=== PATIENT | female | born 1970 | race Caucasian/White ===

== ENCOUNTER 2019-09-15 10:01 | Outpatient (CLI) | payer BC, SELFPAY ==
[2019-09-15 10:17] LABS: Hemoglobin 15.4 g/dL (12.0-15.0); Mean Corpuscular Hemoglobin 31.4 pg (26-34); Mean Corpuscular Volume 89.8 fl (80-100); Mean Platelet Volume 9.6 fl (7.4-10.4); Platelet Count Result 287 k/mm3 (150-375); White Blood Count 8.6 K/mm3 (4.5-10.0)
[2019-09-15 10:29] LABS: Alanine Aminotransferase 24 U/L (4-35); Aspartate Amino Transferase 31 U/L (14-36); Blood Urea Nitrogen 17 mg/dL (7-17); Calcium 9.5 mg/dL (8.4-10.2); Carbon Dioxide 29 mmol/L (22-30); Chloride 95 mmol/L (98-107); Cholesterol 267 mg/dL (0-200); Estimated Glomerular Filt Rate > 60; Glucose 100 mg/dL (65-105); HDL Direct 49 mg/dL; Sodium 134 mmol/L (137-145); Triglycerides 192 mg/dL (<150)
[2019-09-15 10:40] LABS: LDL Cholesterol Direct 196 mg/dL
[2019-09-15 11:11] LABS: Free T4 Free Thyroxine 1.09 ng/mL (0.78-2.19)
== END 2019-09-15 10:02 | disposition home or self-care (01) ==
PROVIDERS: PCP Internal Medicine; Visit Provider Internal Medicine
DX: Z00.00 Encounter for general adult medical examination without abnormal findings (principal)
CPT/HCPCS: 36415; 80048; 80061; 84439; 84443; 84450; 84460; 85027

== ENCOUNTER 2019-11-03 16:11 | Outpatient (CLI) | payer BC, SELFPAY ==
[2019-11-03 17:14] LABS: Alanine Aminotransferase 21 U/L (4-35); Aspartate Amino Transferase 24 U/L (14-36); Cholesterol 164 mg/dL (0-200); Creatine Kinase 115 U/L (30-135); HDL Direct 56 mg/dL; Triglycerides 113 mg/dL (<150)
[2019-11-03 17:25] LABS: LDL Cholesterol Direct 93 mg/dL
== END 2019-11-03 16:12 | disposition home or self-care (01) ==
PROVIDERS: PCP Internal Medicine; Visit Provider Internal Medicine
DX: E78.01 Familial hypercholesterolemia (principal); I10 Essential (primary) hypertension
CPT/HCPCS: 36415; 80061; 82550; 84450; 84460

== ENCOUNTER 2020-05-07 12:16 | Emergency (ER) | payer BC, SELFPAY ==
--- NOTE | ~2020-05-07 | CT_ITS ---
EXAMINATION: CT abdomen pelvis w con EXAM DATE: 05/07/2020 14:06 INDICATION: LLQ abd pain today with nausea . TECHNIQUE: Spiral CT of the abdomen and pelvis was performed following intravenous injection of 100 m L Omnipaque 350. Axial, coronal and sagittal images were reviewed. The dose-length product (DLP) fo r this examination was 837.00 mGy-cm. The exposure was tailored according to patient size (auto mA e xposure control), and iterative reconstruction (ASIR) was used as additional dose reduction technique . There is no prior study for comparison. FINDINGS: The liver, spleen, adrenal glands and pancreas are unremarkable. Gallbladder is unremarkab le. No biliary obstruction. Portal and splenic veins are patent. Kidneys enhance symmetrically. T here is no hydronephrosis. The uterus is unremarkable. The bladder is unremarkable. There is no retroperitoneal or pelvic lymphadenopathy. The appendix is normal. The stomach and small bowel are unremarkable. There is expected amount of c olonic stool. No free intraperitoneal gas. The heart is normal in size. There are no pericardial or pleural effusions. The lung bases are unremarkable. There are no osteoblastic or osteolytic les ions identified. IMPRESSION: 1. No acute intra-abdominal findings. Reviewed, dictated and finalized at location B. SELING DEPARTMENT CHAIR
--- NOTE | 2020-05-07 12:22 | ED.ABDPAIN ---
HPI - Abdominal Pain General Chief Complaint: Abdominal Pain Stated Complaint: ABD PAIN Time Seen by Provider: 05/07/20 12:20 Source: patient and RN notes reviewed Mode of arrival: ambulatory Limitations: no limitations History of Present Illness MD elicited complaint: abdominal pain Pertinent past history: none Onset (ago): hour(s) (1) Pain Consistency: constant Location: [facility] Severity: severe Quality: cramping and stabbing Radiation: none Migration to: no migration Exacerbating factors: nothing Relieving factors: nothing Associated symptoms: nausea Related Data Allergies Allergy/AdvReac Type Severity Reaction Status Date / Time No Known Allergies Allergy Verified 04/18/20 16:56 Review of Systems Review of Systems: All systems reviewed & are unremarkable except as noted in HPI and below Constitutional: Constitutional: Denies chills and Denies fever(s) ENT: Reports system reviewed and no additional complaints, except as documented Cardiovascular: Cardiovascular: Reports no additional cardiovascular complaints Respiratory: Respiratory: Reports no additional respiratory complaints Gastrointestinal: Gastrointestinal: Reports as per HPI, Denies constipation, Denies diarrhea, Denies nausea and Denies vomiting Genitourinary: Genitourinary: Denies nocturia and Denies dysuria Musculoskeletal: Musculoskeletal: Reports no additional musculoskeletal complaints Neurologic: Reports system reviewed and no additional complaints, except as documented Psychiatric: Psychiatric: Reports no additional psychiatric complaints FOR[facility]LY [facility] Past Medical History Medical History (Updated 05/07/20 @ 15:24 by Denver Christine MD) Essential (primary) hypertension Familial hypercholesterolemia Surgical History Surgical History (Updated 05/07/20 @ 12:38 by Denver Christine MD) Previous section Social History Social History (Updated 05/07/20 @ 12:39 by Denver Christine MD) Smoking status: Never smoker Alcohol intake: current Alcohol use details: occasional Substance use: never Exam Const: General: healthy appearing and no acute distress Nutritional Appearance: well nourished Orientation/consciousness: patient oriented x3 Other: female nurse in room during examination HENMT: Head: normal to inspection Ears: external ears normal Eyes: Conjunctivae: conjunctivae normal Pupils: Equal, round and reactive pupils present EOM: EOMs intact bilaterally Neck: Neck: normal visual inspection Resp: Effort & Inspection: normal respiratory effort Auscultation: clear to auscultation bilaterally Cardio: Rate: regular rate Rhythm: regular rhythm GI: GI Palp: Yes Soft to palpation, Yes Tenderness to palpation present (GI) (LLQ), Yes Guarding due to palpation present (GI) (LLQ) and No Rebound tenderness present Auscultation: normal bowel sounds Back/Spine/Pelvis: Cervical Spine: cervical ROM normal Thoracic/Lumbar Spine: thoraco-lumbar ROM normal Skin: General skin exam: normal color Rashes: no rashes Neuro: General: patient oriented x3, moves all extremities and no focal motor deficits Speech: normal speech Gait exam (Neuro): Normal gait present Extrem: General: normal to inspection and no clubbing, cyanosis or edema Psych: Appearance: grossly normal and well kempt Mental Status: mental status grossly normal Affect: normal affect Attitude: cooperative Thought content: Yes Normal thought content present Course Vital Signs Vital signs: Vital Signs Temperature 37.4 C 05/07/20 12:38 Pulse Rate 75 05/07/20 12:38 Respiratory Rate 20 05/07/20 12:38 Blood Pressure 127/99 H 05/07/20 12:38 Pulse Oximetry 96 05/07/20 12:38 Temperature 36.6 C 05/07/20 15:36 Pulse Rate 66 05/07/20 15:36 Respiratory Rate 18 05/07/20 15:36 Blood Pressure 100/80 05/07/20 15:36 Pulse Oximetry 99 05/07/20 15:36 MDM - Abdominal Pain MDM Narrative Medical decision making narrative: I reviewe
[2020-05-07 12:38] VITALS: BP 127/99; PULSE 75; RESP 20; TEMP 37.4; O2SAT 96
[2020-05-07 12:54] LABS: Basophils Absolute Auto 0.05 K/mm3 (0.00-0.10); Basophils Percent Auto 0.6 % (0.0-1.0); Eosinophils Absolute Auto 0.07 K/mm3 (0.02-0.50); Eosinophils Percent Auto 0.9 % (1.0-6.0); Hematocrit 40.3 % (35.0-49.0); Hemoglobin 13.7 g/dL (12.0-15.0); Immature Granulocyte Absolute 0.02 K/mm3 (0.00-0.00); Immature Granulocyte Percent A 0.3 % (0.0-0.0); Lymphocytes Absolute Auto 2.39 K/mm3 (1.10-4.50); Lymphocytes Percent Auto 30.3 % (18.0-42.0); Mean Corpuscular Hemoglobin 31.1 pg (27.0-31.0); Mean Corpuscular Volume 91.4 fL (78.0-102.0); Mean Platelet Volume 9.5 fl (9.2-11.8); Monocytes Percent Auto 7.6 % (2.0-11.0); Neutrophils Absolute Auto 4.8 K/mm3 (1.7-7.2); Neutrophils Percent Auto 60.3 % (50.0-70.0); Platelet Count Result 262 K/mm3 (150-420); Red Blood Count 4.41 M/mm3 (4.20-5.40); Red Cell Distribution Width 12.3 % (11.6-14.4); White Blood Count 7.9 K/mm3 (4.8-10.8)
[2020-05-07 13:08] LABS: Alanine Aminotransferase 44 U/L (14-59); Albumin Level 4.1 g/dL (3.4-5.0); Alkaline Phosphatase 54 U/L (46-116); Anion Gap 10 mmol/L (8-16); Aspartate Amino Transferase 16 U/L (15-37); Bilirubin,Total 0.4 mg/dL (0.00-1.00); Blood Urea Nitrogen 18 mg/dL (7-18); Calcium 9.7 mg/dL (8.5-10.1); Carbon Dioxide 28 mmol/L (21-32); Chloride 103 mmol/L (98-108); Estimated Glomerular Filt Rate > 60; Glucose 92 mg/dL (70-99); Lipase 76 U/L (73-393); Osmolality Calculated 293 mOsm/kg (285-295); Potassium 3.9 mmol/L (3.5-5.1); Sodium 141 mmol/L (136-145); Total Protein 7.8 g/dL (6.4-8.2)
[2020-05-07 13:13] LABS: Lactic Acid Reflex 1.4 mmol/L (0.4-2.0)
[2020-05-07 13:16] LABS: CRP < 0.5 mg/dL (0.0-0.9)
[2020-05-07 13:22] LABS: Add Urine Microscopic? YES; Appearance Urine Clear (Clear); Bilirubin Urine Negative (Negative); Blood Urine Negative (Negative); Color Urine Yellow (Yellow); Glucose Urine UA Negative (Negative); Ketones Urine Negative (Negative); Leukocyte Esterase Ur Trace LEU/UL (Negative); Nitrate Urine Negative (Negative); Protein Urine Negative (Negative); Specific Grav Ur >= 1.030 (1.010-1.020); Urobilinogen Urine 0.2 mg/dL (0.2-1.0)
[2020-05-07 13:26] LABS: RBC Urine 0-2 /hpf (0-2); Squamous Epithelial Cell Urine Moderate /hpf (Few); WBC Urine 0-3 /hpf (0-3)
[2020-05-07 13:27] LABS: Bacteria Urine 3+ /hpf
[2020-05-07] MEDS: HYDROmorphone HCL INJ (*CRX) 2 MG/ML VIAL 0.5 MG IV PUSH (13:41)
[2020-05-07] MEDS: ONDANSETRON INJ 4 MG/2 ML VIAL (14:38)
[2020-05-07] MEDS: MAG HYDROX/ALUMINUM HYD/SIMETH 30 ML, PHENobarb/HYOSCY/ATROPINE/SCOP 32.4 MG, LIDOCAINE... PO (14:46)
[2020-05-07 15:06] VITALS: BP 97/54; PULSE 70; RESP 20; O2SAT 100
[2020-05-07 15:36] VITALS: BP 100/80; PULSE 66; RESP 18; TEMP 36.6; O2SAT 99
== END 2020-05-07 15:38 | disposition home or self-care (01) ==
PROVIDERS: Emergency Provider Emergency Medicine; PCP Internal Medicine
DX: R10.12 Left upper quadrant pain (principal); K25.3 Acute gastric ulcer without hemorrhage or perforation; I10 Essential (primary) hypertension; E78.01 Familial hypercholesterolemia
CPT/HCPCS: 36415; 74177; 80053; 81001; 83605; 83690; 85025; 86140; 96374; 96375; 99283; 99284; A9270; J1170; J2405; Q9967

== ENCOUNTER 2021-06-12 15:43 | Outpatient (CLI) | payer BC, SELFPAY ==
[2021-06-12 16:15] LABS: Hematocrit 43.3 % (35.0-49.0); Hemoglobin 14.8 g/dL (12.0-15.0); Mean Corpuscular HGB Conc 34.2 g/dL (32.0-36.0); Mean Corpuscular Hemoglobin 31.6 pg (27.0-31.0); Mean Corpuscular Volume 92.3 fL (78.0-102.0); Mean Platelet Volume 9.7 fl (9.2-11.8); Platelet Count Result 260 K/mm3 (150-420); Red Blood Count 4.69 M/mm3 (4.20-5.40); White Blood Count 7.9 K/mm3 (4.8-10.8)
[2021-06-12 17:03] LABS: Alanine Aminotransferase 28 U/L (14-59); Albumin Level 4.2 g/dL (3.4-5.0); Alkaline Phosphatase 69 U/L (46-116); Anion Gap 11 mmol/L (8-16); Aspartate Amino Transferase 20 U/L (15-37); Bilirubin,Total 0.4 mg/dL (0.00-1.00); Blood Urea Nitrogen 17 mg/dL (7-18); Calcium 9.2 mg/dL (8.5-10.1); Carbon Dioxide 24 mmol/L (21-32); Chloride 101 mmol/L (98-108); Cholesterol 256 mg/dL (0-200); Estimated Glomerular Filt Rate > 60; Glucose 82 mg/dL (70-99); HDL Direct 48 mg/dL (40-60); LDL Cholesterol Calculated 179 mg/dL (<130); Osmolality Calculated 282 mOsm/kg (285-295); Potassium 3.6 mmol/L (3.5-5.1); Sodium 136 mmol/L (136-145); Total Protein 7.4 g/dL (6.4-8.2); Triglycerides 145 mg/dL (0-150)
== END 2021-06-12 15:44 | disposition home or self-care (01) ==
LOC: CHSLAB 15:45
PROVIDERS: PCP Family Medicine; Visit Provider Family Medicine
DX: I10 Essential (primary) hypertension (principal)
CPT/HCPCS: 36415; 80053; 80061; 85027

== ENCOUNTER 2021-06-25 06:55 | Outpatient (CLI) | payer BC, SELFPAY ==
--- NOTE | ~2021-06-25 | MM_ITS ---
EXAMINATION: MM screening mikel BI w dejan HISTORY: Screening mammogram TECHNIQUE: Craniocaudal and mediolateral oblique 3-D tomosynthesis images were obtained and synthetic 2-D images were generated. CAD analysis was submitted and interpreted. COMPARISON: No prior mammogram is available for comparison at this institution. BREAST PARENCHYMAL COMPOSITION: There are scattered areas of fibroglandular density. FINDINGS: There is no evidence of suspicious mass, calcification, or architectural distortion to sugg est malignancy in either breast. There has been no suspicious interval change. IMPRESSION: 1. No mammographic evidence of malignancy. 2. Recommend routine screening mammography in one year. BI-RADS Category 1: Negative Reviewed, dictated and finalized at location A.
== END 2021-06-25 06:56 | disposition home or self-care (01) ==
LOC: CHSIMG 06:56
PROVIDERS: PCP Family Medicine; Visit Provider Family Medicine
DX: Z12.31 Encounter for screening mammogram for malignant neoplasm of breast (principal)
CPT/HCPCS: 77063; 77067

== ENCOUNTER 2021-10-08 21:11 | Emergency (ER) | payer BC, SELFPAY ==
--- NOTE | ~2021-10-08 | CT_ITS ---
EXAMINATION: CT abdomen pelvis w con DATE: 10/08/2021 22:51 INDICATION: RUQ pain TECHNIQUE: Computed tomography (CT) of the abdomen and pelvis was performed with 100 mL Omnipaque-300 intravenous contrast. Automated exposure control and iterative reconstruction technique were employe d. The dose-length product was 929.54 mGy-cm. COMPARISON: 05/07/2020. FINDINGS: Lower thorax: Stable peripheral nodules. Liver: Normal. Biliary/Gallbladder: Gallbladder is normal. No bile duct dilation. Pancreas: No mass or duct dilation. Spleen: Normal. Adrenals:No mass. Kidneys: No mass, stone, or hydronephrosis. GI tract: No small or large bowel dilation. Normal appendix. Mesentery/Peritoneum: No ascites, mass, or free air. Retroperitoneum: No mass. Pelvis: Fibroid uterus. Hypoenhancement of the cervix. Simple appearing subcentimeter left ovarian cy st. Soft Tissues: Soft tissues and body wall unremarkable. Bones: No acute osseous finding. IMPRESSION: No CT finding that would explain right upper quadrant pain. Hypoenhancing cervix, a nonspecific findi ng. Gynecology referral may be advisable to exclude cervical pathology. Reviewed, dictated and finalized at location K. IMPRESSION: No CT finding that would explain right upper quadrant pain. Hypoenhancing cervi x, a nonspecific finding. Gynecology referral may be advisable to exclude cervi miguel angel pathology.
[2021-10-08 21:14] VITALS: BP 163/108; PULSE 102; RESP 26; TEMP 36.8; O2SAT 95
[2021-10-08 21:44] LABS: Basophils Absolute Auto 0.1 K/mm3 (0.0-0.1); Basophils Percent Auto 1.1 % (0.2-1.2); Eosinophils Absolute Auto 0.2 K/mm3 (0-0.3); Hematocrit 44.9 % (37.0-47.0); Hemoglobin 14.8 g/dL (12.0-15.0); Immature Granulocyte Absolute 0.02 K/mm3 (0.00-0.031); Immature Granulocyte Percent A 0.2 % (0-0.5); Lymphocytes Absolute Auto 3.24 K/mm3 (0.9-3.2); Lymphocytes Percent Auto 37.9 % (18.3-44.2); Mean Corpuscular Hemoglobin 30.9 pg (26-34); Mean Corpuscular Volume 93.7 fl (80-100); Mean Platelet Volume 9.4 fl (7.4-10.4); Monocytes Absolute Auto 0.6 K/mm3 (0.1-0.6); Monocytes Percent Auto 6.9 % (2.6-8.5); Neutrophils Absolute Auto 4.5 K/mm3 (1.3-6.7); Neutrophils Percent Auto 51.9 % (45.5-73.1); Platelet Count Result 337 k/mm3 (150-375); Red Blood Count 4.79 M/mm3 (4.2-5.4); Red Cell Distribution Width 12.4 % (11.5-14.5); White Blood Count 8.6 K/mm3 (4.5-10.0)
[2021-10-08 21:54] LABS: Alanine Aminotransferase 21 U/L (6-35); Albumin Level 4.9 g/dL (3.5-5.1); Alkaline Phosphatase 68 U/L (38-126); Anion Gap 12 mmol/L (8-16); Aspartate Amino Transferase 23 U/L (14-36); Bilirubin,Total 0.3 mg/dL (0.2-1.3); Blood Urea Nitrogen 14 mg/dL (7-17); Calcium 9.2 mg/dL (8.4-10.2); Carbon Dioxide 24 mmol/L (22-30); Chloride 104 mmol/L (98-107); Estimated CRCL calculation 90 ml/min; Estimated Glomerular Filt Rate > 60; Glucose 115 mg/dL (65-110); Lipase 89 U/L (23-300); Potassium 3.8 mmol/L (3.4-5.0); Sodium 140 mmol/L (137-145)
--- NOTE | 2021-10-08 22:14 | ED.ABDPAIN ---
HPI - Abdominal Pain General Chief Complaint: Abdominal Pain Stated Complaint: abd pain Time Seen by Provider: 10/08/21 21:28 Source: patient Mode of arrival: ambulatory Limitations: no limitations History of Present Illness HPI narrative: This is a 50 year old female that presents to the ER for abdominal pain ongoing since this morning. The pain is in the right upper quadrant and sharp in nature. Reports worsening after eating some fried foods tonight. Denies fever, vomiting, or diarrhea. Related Data Allergies Allergy/AdvReac Type Severity Reaction Status Date / Time No Known Allergies Allergy Verified 10/08/21 21:33 Review of Systems Review of Systems: CONSTITUTIONAL: Denies fever GASTROINTESTINAL: Reports abdominal pain, nausea. Denies vomiting, or diarrhea. GENITOURINARY: Denies dysuria All systems reviewed & are unremarkable except as noted in HPI and below PMFSH Past Medical History Medical History Essential (primary) hypertension Familial hypercholesterolemia Surgical History Surgical History delivery delivered Previous section Family History Family History Mother Hypertension Mother Hypertension Other Cancer of pancreas Diabetes mellitus Social History Social History Smoking packs per day: 0 Smoking cigarettes per day: 0.0 Smoking status: Never smoker Alcohol intake: current Drinks per week: 4 Alcohol use details: occasional Substance use: never 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 HEAD: Normocephalic, atraumatic. EYES: EOMI. CHEST: Clear to auscultation. No respiratory distress. No wheezes rales or rhonchi HEART: Regular rate and rhythm. No murmur heard. Normal peripheral pulses. ABDOMEN: Soft, nondistended, normal active bowel sounds. Tender to palpation in the epigastrium and right upper quadrant, without guarding EXTREMITIES: Normal range of motion. No edema. SKIN: Warm, dry, no rash. NEURO: No focal deficits. Alert and oriented x3. PSYCH: Normal mood and affect Course Vital Signs Vital signs: Vital Signs Temperature 98.3 F 10/08/21 21:14 Pulse Rate 102 H 10/08/21 21:14 Respiratory Rate 26 H 10/08/21 21:14 Blood Pressure 163/108 H 10/08/21 21:14 Pulse Oximetry 95 10/08/21 21:14 Oxygen Delivery Room Air 10/08/21 21:14 Temperature 98.3 F 10/08/21 21:14 Pulse Rate 73 10/09/21 00:15 Respiratory Rate 18 10/09/21 00:15 Blood Pressure 160/88 H 10/09/21 00:15 Pulse Oximetry 97 10/09/21 00:15 Oxygen Delivery Room Air 10/08/21 21:14 MDM - Abdominal Pain MDM Narrative Medical decision making narrative: Patient presents to the emergency department for right upper quadrant abdominal pain. Ongoing today. Worsening after eating a fatty meal. She is afebrile and nontoxic-appearing. Her vitals are stable. CBC and metabolic panel without concerning findings. Lipase is normal. UA with 7-9 white blood cells. Patient is not having any urinary symptoms. This will be sent for culture. CT scan of the abdomen and pelvis is without acute intra-abdominal abnormalities. Does show hypoenhancing cervix, nonspecific finding. Gynecology referral recommended. EKG without concerning findings. Patient and family updated on case findings. Hydrated and given antiemetic and pain medication with relief. Will be scheduled for right upper quadrant ultrasound in the morning. Was instructed to have close follow-up with her primary doctor. Also instructed to have follow-up with her chief petroleum engineer. She was given warnings to return to the ER Lab Data Attestation: Megan morocho
[2021-10-08] MEDS: MORPHINE SULFATE (*CRX) 4 MG/ML INJ IV PUSH (22:16)
[2021-10-08] MEDS: SODIUM CHLORIDE 0.9% IV 1,000 ML 999 ML IV CONT (22:17)
[2021-10-08] MEDS: ONDANSETRON INJ 4 MG/2 ML VIAL IV PUSH (22:17)
[2021-10-08 22:23] VITALS: BP 142/98; PULSE 79; RESP 18; O2SAT 97
[2021-10-08 22:36] LABS: Appearance Urine Clear (Clear); Bilirubin Urine Negative (Negative); Blood Urine Negative (Negative); Color Urine Yellow (Yellow); Glucose Urine UA Negative (Negative); Ketones Urine Negative (Negative); Leukocyte Esterase Ur 2+ LEU/UL (Negative); Nitrate Urine Negative (Negative); Protein Urine Negative (Negative); Specific Grav Ur <= 1.005 (1.001-1.035); Urobilinogen Urine 0.2 mg/dL (<2.0); pH Urine 5.5 (5.0-9.0)
[2021-10-08 22:54] LABS: Bacteria Urine Trace /hpf; Mucus Urine Rare /lpf; Squamous Epithelial Cell Urine Few /hpf (Few)
[2021-10-08 22:57] LABS: Add Urine Microscopic? YES
--- NOTE | 2021-10-08 23:20 | ECG_ITS ---
Measurements Intervals [place] Rate: 72 P: 47 MS: 171 QRS: 0 QRSD: 108 T: 2 QT: 406 QTc: 445 Interpretive Statements SINUS RHYTHM MINIMAL Q WAVES- HIGH LATERAL LEADS BORDERLINE T WAVE ABNORMALITY- INFERIOR LEADS BASELINE ARTIFACT- I, II, III, AVR, AVL, AVF BORDERLINE ECG Electronically Signed On 10-09-2021 6:45:59 CDT by Hussein Mcdaniel D.O.
[2021-10-08] MEDS: PANTOPRAZOLE SODIUM IV 40 MG VIAL IV PUSH (23:24)
[2021-10-09 00:15] VITALS: BP 160/88; PULSE 73; RESP 18; O2SAT 97
== END 2021-10-09 00:19 | disposition home or self-care (01) ==
PROVIDERS: Physician Assistant; Emergency Provider General Practice; PCP Family Medicine
DX: R10.11 Right upper quadrant pain (principal); N88.9 Noninflammatory disorder of cervix uteri, unspecified; I10 Essential (primary) hypertension; E78.01 Familial hypercholesterolemia
CPT/HCPCS: 36415; 74177; 80053; 81001; 81025; 83690; 85025; 87086; 93005; 96361; 96365; 96375; 99284; C9113; J0131; J2270; J2405; J7030; Q9967

== ENCOUNTER 2021-10-09 08:23 | Outpatient (CLI) | payer BC, SELFPAY ==
--- NOTE | ~2021-10-09 | US_ITS ---
EXAMINATION: US right upper quadrant DATE: 10/09/2021 09:08 INDICATION: Abdominal pain TECHNIQUE: Multiple grayscale and Doppler ultrasound images of the abdomen were obtained. COMPARISON: CT from yesterday FINDINGS: The head, body, and tail of the pancreas are normal. The liver is normal with normal echoge nicity and echotexture. No surface nodularity. Normal hepatopetal flow in the main portal vein. The g allbladder is normal with no abnormal wall thickening, pericholecystic fluid or stones. The normal co mmon bile duct measures 2 mm. There was no sonographic Chaves sign. IMPRESSION: 1. Normal sonographic study of the gallbladder. Reviewed, dictated and finalized at location B.
== END 2021-10-09 08:24 | disposition home or self-care (01) ==
LOC: ANHIMG 08:24
PROVIDERS: PCP Family Medicine; Visit Provider Physician Assistant
DX: R10.11 Right upper quadrant pain (principal)
CPT/HCPCS: 76705

== ENCOUNTER 2021-10-15 14:58 | Outpatient (CLI) | payer BC, SELFPAY ==
--- NOTE | ~2021-10-15 | XR_ITS ---
XR chest 2V DATE: 10/15/2021 15:36 INDICATION: Right anterior lower chest pain since Covid infection in mid September TECHNIQUE: PA and lateral views COMPARISON: None FINDINGS: Mild elevation right leaf of the diaphragm. Minimal atelectasis at the lung bases. The lung s otherwise are clear of infiltrate or consolidation. No pleural effusion or pulmonary vascular conge stion or pneumothorax. Normal heart size. Minimal aortic tortuosity. No hilar or mediastinal enlargement. Osteopenia. IMPRESSION: Mild elevation of diaphragm and minimal atelectasis at the lung bases Reviewed, dictated and finalized at location B. IMPRESSION: Mild elevation of diaphragm and minimal atelectasis at the lung bas es
== END 2021-10-15 14:59 | disposition home or self-care (01) ==
LOC: CHSIMG 15:01
PROVIDERS: PCP Family Medicine; Visit Provider Family Medicine
DX: R07.9 Chest pain, unspecified (principal)
CPT/HCPCS: 71046

== ENCOUNTER 2022-04-08 15:28 | Outpatient (RCR) | payer BC, SELFPAY ==
--- NOTE | 2022-04-08 16:48 | PTOPEVAL1 ---
Assessment and note entered by Pratik Hannon Evaluation Information Assessment Status Evaluation Diagnosis left hip pain Onset 04/02/22 Subjective Information Pt. reports she developed left hip pain about 10 years ago. She reports that pain is located on the side of the left hip and into the groin. She reports that lifting the left leg increases her pain. She reports that she also gets pain with getting into and out of her vehicle. She reports that pain will wake her at night on occasion. She reports that walking and standing do not increase her pain. She reports that her goal for therapy is to decrease her left hip pain. Reported Pain Level Pain Score 7: Self Report Assessment PT Clinical Summary Pt. is a 51 year old female who enters the clinic with left hip pain. She presents with indications of interarticular hip pathology. She presents with impaired gait, impaired strength, impaired ROM and pain on this date. Conitnued treatment is indicated in order to improve these areas to allow for improve IADL performance. Plan of Care Interventions Electrical Stimulation,Gait Training,Hot Pack/Cold Pack,Manual Therapy,Neuro Re-education, Therapeutic Activities,Therapeutic Exercise,Self- Care/Home Management PT Services Indicated Yes Treatment Frequency and 2x/week x 8 visits Duration These treatments will address the objective and functional deficits as defined above. The patient will be advanced safely and appropriately in order for the patient to progress towards his/her prior level of function. Additional exercises will be introduced and as well as a comprehensive home exercise program upon discharge, if needed, ?to ensure carryover of functional gains achieved in the clinic. This treatment plan has been reviewed and agreement upon by the patient.
== END 2022-04-15 15:42 | disposition home or self-care (01) ==
LOC: CHSPT 15:28
PROVIDERS: PCP Family Medicine; Visit Provider Family Medicine
DX: M25.552 Pain in left hip (principal)
CPT/HCPCS: 97014; 97110; 97161; G0283

== ENCOUNTER 2022-04-08 16:42 | Outpatient (CLI) | payer BC, SELFPAY ==
--- NOTE | ~2022-04-08 | XR_ITS ---
EXAM: XR hip LT min 3V w AP pelvis DATE: 04/08/2022 17:07 HISTORY: CHRONIC LATERAL L HIP PAIN, [id number] . COMPARISON: None available. FINDINGS: Normal mineralization. No fracture or dislocation. No lytic or blastic lesion. Mild bilate ral hip joint space narrowing. Moderate osteitis pubis. No erosion or periosteal change. Soft tissues within normal limits. IMPRESSION: Mild bilateral hip osteoarthritis. Osteitis pubis. Reviewed, dictated and finalized at location K. CERTIFIED TECHNICIAN
== END 2022-04-08 16:43 | disposition home or self-care (01) ==
LOC: CHSIMG 16:44
PROVIDERS: PCP Family Medicine; Visit Provider Family Medicine
DX: M25.552 Pain in left hip (principal); M16.0 Bilateral primary osteoarthritis of hip; M86.8X8 Other osteomyelitis, other site
CPT/HCPCS: 73502

== ENCOUNTER 2022-04-12 08:21 | Outpatient (CLI) | payer BC, SELFPAY ==
--- NOTE | ~2022-04-12 | MR_ITS ---
EXAMINATION: MR hip LT wo con DATE: 04/12/2022 09:33 INDICATION: Left hip pain. TECHNIQUE: Magnetic resonance imaging (MRI) of the left hip was performed without intravenous contras t. COMPARISON: Pelvis and left hip radiographs 04/08/2022 FINDINGS: Bones/cartilage: Bone alignment is normal. No fracture. The hip joints demonstrate tiny osteophytes. Small field-of-vi ew images of left hip demonstrate normal cartilage. Labrum: There is a tear of left acetabular labrum. Fluid: There is no hip joint effusion. There is mild left trochanteric bursitis. There is a thin fluid colle ction measuring 6.5 x 1.8 x 0.3 cm at the junction of the subcutaneous fat and underlying fascia at t he lateral aspect of the left pelvis, consistent with an internal soft tissue degloving injury. Soft tissues: The hamstring tendon origins are normal. The gluteus minimus and gluteus medius tendons are normal. T he iliopsoas tendons are normal. There is a 2.3 cm intramural uterine fibroid. IMPRESSION: 1. 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 2. Mild left trochanteric bursitis. 3. Tear of left acetabular labrum. Reviewed, dictated and finalized at location A. 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 Thin fluid collection at the junction of the subcutaneous fat and underlying fascia at the left lateral aspect of the pelvis, consistent with an internal s oft tissue degloving injury (Blackwell-Salina lesion). 2. Mild left trochanteric bursitis. 3. Tear of left acetabular labrum.
== END 2022-04-12 08:22 | disposition home or self-care (01) ==
LOC: CHSIMG 08:22
PROVIDERS: PCP Family Medicine; Visit Provider Family Medicine
DX: M25.552 Pain in left hip (principal); M71.552 Other bursitis, not elsewhere classified, left hip; S73.192A Other sprain of left hip, initial encounter
CPT/HCPCS: 73721

== ENCOUNTER 2022-08-19 08:13 | Outpatient (CLI) | payer BC, SELFPAY ==
--- NOTE | ~2022-08-19 | MM_ITS ---
EXAMINATION: MM screening mikel BI w dejan HISTORY: Screening TECHNIQUE: Craniocaudal and mediolateral oblique 3-D tomosynthesis images were obtained and synthetic 2-D images were generated. CAD analysis was submitted and interpreted. COMPARISON: 06/25/2021 BREAST PARENCHYMAL COMPOSITION: Breast composed of scattered areas of fibroglandular density FINDINGS: There is no evidence of suspicious mass, calcification, or architectural distortion to sugg est malignancy in either breast. There has been no suspicious interval change. IMPRESSION: 1. No mammographic evidence of malignancy. 2. Recommend routine screening mammography in one year. BI-RADS Category 1: Negative Reviewed, dictated and finalized at location A.
== END 2022-08-19 08:14 | disposition home or self-care (01) ==
LOC: CHSIMG 08:15
PROVIDERS: PCP Family Medicine; Visit Provider Obstetrics & Gynecology
DX: Z12.31 Encounter for screening mammogram for malignant neoplasm of breast (principal)
CPT/HCPCS: 77063; 77067

== ENCOUNTER 2023-01-14 10:39 | Outpatient (NON) | payer OTHER, SELFPAY | END 2023-01-14 10:40 | disposition home or self-care (01) | LOC: CHSLAB 10:41 | PROVIDERS: Visit Provider Family Medicine | DX: D23.72 Other benign neoplasm of skin of left lower limb, including hip (principal); D23.71 Other benign neoplasm of skin of right lower limb, including hip | CPT/HCPCS: 88305 ==

== ENCOUNTER 2023-05-07 08:12 | Outpatient (CLI) | payer OTHER, SELFPAY ==
[2023-05-07 09:06] LABS: Influenza A QL RT-PCR Positive (Negative); Influenza B QL RT-PCR Negative (Negative); RSV RNA, RT-PCR Negative (Negative); SARS-CoV-2 RNA PCR Negative (Negative); Strep Group A RT-PCR NOT DETECTED (Negative)
== END 2023-05-07 08:13 | disposition home or self-care (01) ==
LOC: CHSLAB 08:14
PROVIDERS: PCP Family Medicine; Visit Provider Family Medicine
DX: R05.9 Cough, unspecified (principal); Z20.822 Contact with and (suspected) exposure to COVID-19
CPT/HCPCS: 87637; 87651

== ENCOUNTER 2023-08-24 13:06 | Outpatient (CLI) | payer OTHER, SELFPAY ==
--- NOTE | ~2023-08-24 | MM_ITS ---
EXAMINATION: MM screening mikel BI w dejan HISTORY: Screening TECHNIQUE: Craniocaudal and mediolateral oblique 3-D tomosynthesis images were obtained and synthetic 2-D images were generated. CAD analysis was submitted and interpreted. COMPARISON: Comparison to multiple prior studies sequentially, with oldest reviewed study dated 07/03. BREAST PARENCHYMAL COMPOSITION: Dense: The breasts are heterogeneously dense, which may obscure small masses FINDINGS: There is no evidence of suspicious mass, calcification, or architectural distortion to sugg est malignancy in either breast. There has been no suspicious interval change. IMPRESSION: 1. No mammographic evidence of malignancy. 2. Recommend routine screening mammography in one year. BI-RADS Category 1: Negative Reviewed, dictated and finalized at location B.
== END 2023-08-24 13:07 | disposition home or self-care (01) ==
LOC: CHSIMG 13:07
PROVIDERS: PCP Family Medicine; Visit Provider Obstetrics & Gynecology
DX: Z12.31 Encounter for screening mammogram for malignant neoplasm of breast (principal)
CPT/HCPCS: 77063; 77067

== ENCOUNTER 2024-05-08 18:44 | Inpatient (IN) | payer OTHER, SELFPAY ==
--- NOTE | ~2024-05-08 | US_ITS ---
EXAM: ABDOMEN ULTRASOUND HISTORY: cholecystitis COMPARISON: Reference is made to a CT examination of the abdomen and pelvis performed 24 hours earlie r FINDINGS: LIVER: The liver is unremarkable in echogenicity and size measuring 15cm in longitudinal dimension. The main portal vein is patent demonstrating hepatopedal flow. GALLBLADDER: Multiple stones are identified within the gallbladder, which is only minimally distended . Gallbladder wall thickening is noted, possibly secondary to underdistention. No pericholecystic fluid is identified. BILE DUCTS: Common bile duct measures 2.9mm. PANCREAS: Limited evaluation of the pancreas secondary to overlying bowel gas IMPRESSION: Evaluation of the pancreas is limited by overlying bowel gas. Cholelithiasis. Gallbladder wall thickening which may be secondary to underdistention. Reviewed, dictated and finalized at location A. 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
--- NOTE | ~2024-05-08 | MR_ITS ---
EXAMINATION: MR MRCP wo/w con/w 3D wo ind DATE: 05/09/2024 19:40 INDICATION: Biliary pancreatitis TECHNIQUE: Magnetic resonance imaging (MRI) of the abdomen was performed without and with 15 mL Multi evi intravenous contrast. Sequences included coronal T2-weighted SS-FSE, coronal T2-weighted FS SS- FSE, coronal T2-weighted FS FIESTA, axial T2-weighted FS FIESTA, axial T2-weighted FIESTA, sagittal T 2-weighted SS-FSE, axial T1-weighted dual-echo FSPGR, axial T2-weighted SS-FSE, axial T1-weighted LAV A, axial T2-weighted STIR FSE. Thick-slab T2-weighted FRFSE-XL images were obtained for magnetic reso nance cholangiopancreatography (MRCP). Rotating maximum intensity projection 3-D reconstructions of t he volumetric data were created by the technologist. Postcontrast sequences included a time course of axial T1-weighted LAVA. COMPARISON: CT dated 05/08/2024 FINDINGS: ABDOMEN MRI: Heart size is normal. Linear discoid atelectasis in the bilateral lower lobes. Liver is normal. Numer ous small gallstones in the dependent aspect of the otherwise normal-appearing gallbladder. There is pericholecystic fluid at the gallbladder fossa. Spleen, pancreas, bilateral adrenal glands and kidney s are normal. There is a likely benign 1.7 cm thin-walled T2 hyperintense cyst along the serosal surf [place] of the proximal descending colon. Visualized bowels are otherwise unremarkable. Fat saturating T1 hyperintense hemangioma at L2. No pathologically enlarged abdominal or upper pelvic lymphadenopathy. ABDOMEN MRCP: No intrahepatic biliary ductal dilation. The common bile duct measures up to 2 to 3 mm maximal diameter with no evident mucosal irregularity, stricture or filling defect to suggest choledo cholithiasis. The main pancreatic duct is also normal measuring up to 2-2.5 mm in maximal diameter at the head of the pancreas. IMPRESSION: 1. Cholelithiasis with small amount of pericholecystic fluid suspicious for acute cholecystitis. No c holedocholithiasis or intra/extra hepatic biliary ductal dilation. 2. Likely benign simple appearing thin-walled cystic structure along the serosal surface of the proxi mal descending colon without evident solid nodular component which could represent a peritoneal inclu brina cyst, enteric duplication cyst, lymphangioma/lymphatic malformation or diverticulum. Reviewed, dictated and finalized at location B. R ACID DRUM IMPRESSION: 1. Cholelithiasis with small amount of pericholecystic fluid suspicious for acu te cholecystitis. No choledocholithiasis or intra/extra hepatic biliary ductal dilation. 2. Likely benign simple appearing thin-walled cystic structure along the serosa l surface of the proximal descending colon without evident solid nodular compon ent which could represent a peritoneal inclusion cyst, enteric duplication cyst , lymphangioma/lymphatic malformation or diverticulum.
--- NOTE | ~2024-05-08 | CT_ITS ---
CT of the Abdomen and Pelvis: Indication: Epigastric pain Technique: 2.5 mm axial scans were obtained through the abdomen and pelvis following intravenous adm inistration of 100 cc of Omnipaque 350. Dose reduction technique was used on this scan by utilizing a utomated exposure control and iterative reconstruction technique. The dose-length product (DLP) was 5 38.97 mGy-cm. COMPARISON: 10/08/2021 Findings: Scans through the lung bases are unremarkable. The liver, spleen, pancreas, adrenals and kidneys are within normal limits. There is probable gallbla dder wall thickening. No evidence of aortic aneurysm. No lymphadenopathy. No bowel obstruction or bowel wall thickening. There is no evidence to suggest acute appendicitis. Images through the pelvis were performed. Urinary bladder unremarkable. Probable calcified uterine fi broids. No other adnexal mass. No ascites. Impression: Gallbladder wall thickening. Correlate for possible acute cholecystitis. Consider ultrasound and/or H KELLY scan for further evaluation. Reviewed, dictated and finalized at location . 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 Correlate for possible acute cholecystitis. Consid er ultrasound and/or HIDA scan for further evaluation.
--- OUTSIDE RECORDS SUMMARY | 2024-05-08 18:46 | XMS_ITS | Clinical Summary ---
Author Organization [facility] Address [address] [place] [address] Care Team Providers Care Supervisor Claims Name Role Phone Derick Heaton MD Primary Care Provider [phone] Allergies No known active allergies Medications No known medications Active Problems No known active problems Family History Medical History Relation Comments Breast Cancer Neg Hx Social History Tobacco Use Types Packs/Day Years Used Date Smoking Tobacco: Never Alcohol Use Standard Drinks/Week Comments Yes 0 (1 standard drink = 0.6 oz pur e alcohol) SOCIALLY Comments Unknown Sex and Gender Information Value Date Recorded Sex Assigned at Not on file Legal Sex Female 7:55 PM CDT Gender Identity Not on file Sexual Orientation Not on file Last Filed Vital Signs Vital Sign Reading Time Taken Comments Blood Pressure 121/92 08/31/2019 12:25 AM CDT Pulse 75 08/30/2019 10:48 PM CDT Temperature 37 C (98.6 F) 08/30/2019 10:48 PM CDT Respiratory Rate 16 08/30/2019 10:48 PM CDT Oxygen Saturation 96% 08/31/2019 12:25 AM CDT Inhaled Oxygen Concentration - - Weight 86.2 kg (190 lb) 08/30/2019 10:48 PM CDT Height 167.6 cm (5' 6 ) 08/30/2019 10:48 PM CDT Body Mass Index 30.67 08/30/2019 10:48 PM CDT Plan of Treatment Health Maintenance Due Date Last Done Comments Cervical Cancer Screening Pa p Smear (Age 30 to 64) Every 3 Years 1968 Colorectal Cancer Screening Colonoscopy (10 Years) 1968 Annual Physical 12/25/1971 Hepatitis C 1986 DTaP, Tdap and Td Vaccines ( 1 - Tdap) 12/25/1987 Hepatitis B Vaccines (1 of 3 - 19+ 3-dose series) 12/25/1987 Cervical Cancer Screening Pa p with HPV Testing (Age 30 to 64) Every 5 Years 1998 Cervical Cancer Screening with HPV 1998 Zoster Vaccines (1 of 2) 2018 Mammogram Screening 01/24/2021 01/24/2019 COVID-19 Vaccine (1 - 2023-2 5 season) 2023 Influenza Adult (#1) 2023 Meningococcal B Vaccine Aged Out No l onger eligible based on patient's age to complete this topic Meningococcal Vaccine Aged Out No marni trang eligible based on patient's age to complete this topic Pneumococcal Vaccine: Pediat rics (0 to 5 Years) and At-Risk Patients (6 to 64 Years) Aged Out No longer eligi ble based on patient's age to complete this topic RSV Immunizations Under 20 Months Aged Out No longer eligible based on patient's age to complete this topic Procedures Procedure Name Priority Date/Time Associated Diagnosis Comments MG SCREENING W KAJAL LORY DIGI Routine 01/24/2019 11:15 AM PERIOPERATIVE ASSISTANT Visit for screening mammogram from Last 3 Months or Most Recently Relevant to Health Maintenance Results * MG SCREENING W KAJAL LORY DIGI (01/24/2019 11:15 AM PERIOPERATIVE ASSISTANT) Anatomical Region Laterality Modality Breast Bilateral Mammography 01/24/2019 11:2 2 AM PERIOPERATIVE ASSISTANT Narrative 01/24/2019 11:23 AM PERIOPERATIVE ASSISTANT IMAGING STUDIES: MG SCREENING W KAJAL LORY DIGI DATE: 01/24/2019 10:57 AM INDICATION: screening. COMPARISON: 08/29/2016, 08/25/2016. FINDINGS: Bilateral CC and MLO views, digital with CAD. 2-D with 3-D tomosynthesis. Breast compostition: Category C - The breasts are heterogeneously dense, which may obscure small masses. No suspicious microcalcification, worrisome mass or evidence of architectural distortion. No skin thickening or nipple retraction. Benign microcalcifications. CONCLUSION: No mammographic evidence of malignancy. BI-RADS Category 2 - benign findings. Routine screening mammography recommended MQSA BI-RADS Categories: Category 0 - needs additional imaging evaluation. Category 1 - negative. Category 2 - benign findings. Category 3 - probably benign findings, but short interval follow-up is recommended. Category 4 - suspicious abnormality and biopsy should be considered though the lesion may well be benign. Category 5 - highly suggestive of malignancy and appropriate action should be taken. A) A negative report should not delay a biopsy if a dominant or clinically suspicious mass is present. B) Adenosis and dense breasts may obscure an underlying neoplasm. C) Study interpreted with computer aided detection. Interpreted By: Eduardo Bailey, 01/24/2019 11:22 AM Derick Heaton MD MAMMO Final Result from Last 3 Months or Most Recently Relevant to Health Maintenance Insurance Care Teams Supervisor Claims Relationship Specialty Start Date End Date Derick Heaton MD PCP - General OBGYN 01/20/19
--- OUTSIDE RECORDS SUMMARY | 2024-05-08 18:47 | XMS_ITS | Referral Summary ---
Author Organization [facility] Address [address] [place] [address] Care Team Providers Care Secretary Office Clerk Name Role Phone No, Physician Primary Care Provider [phone] Allergies No known active allergies Medications naproxen (NAPROSYN) 500 mg tablet naproxen 500 mg tablet Active rosuvastatin (CRESTOR) 20 mg tablet rosuvastatin 20 mg tablet Active valsartan-hydro CHLOROthiazide (DIOVAN-HCT) 160-12.5 mg per tablet valsartan 160 mg-hydrochloroth iazide 12.5 mg tablet Active Active Problems Problem Noted Date Diagnosed Date Pain of left hip joint 05/09/2022 Social History Tobacco Use Types Packs/Day Years Used Date Smoking Tobacco: Never Smokeless Tobacco: Never Tobacco Cessation:Counseling Given: Not Answered Personal Safety Answer Date Recorded Getting School Help Needed Not on file 05/28 Comments Unknown Sex and Gender Information Value Date Recorded Sex Assigned at Not on file Legal Sex Female 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 Gender Identity Female 02/10/2023 6:20 AM BASKET GRADER Sexual Orientation Not on file Last Filed Vital Signs Vital Sign Reading Time Taken Comments Blood Pressure - - Pulse - - Temperature - - Respiratory Rate - - Oxygen Saturation - - Inhaled Oxygen Concentration - - Weight 88.9 kg (195 lb 14.4 oz) 09/01/2022 1:00 PM CDT Height 169.5 cm (5' 6.75 ) 09/01/2022 1:00 PM CD T Body Mass Index 30.91 09/01/2022 1:00 PM CDT Plan of Treatment Not on file Insurance [facility] Address: [address] [address] [place] [address] [facility] Address: [address] [address] [place] [phone] Care Teams Secretary Office Clerk Relationship Specialty Start Date End Date No, Physician PCP - General 05/28/22
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
--- OUTSIDE RECORDS SUMMARY | 2024-05-08 18:47 | XMS_ITS | Clinical Summary ---
Author Organization [facility] Address [address] [place] [address] Care Team Providers Care Rental Agent Name Role Phone No, Physician Primary Care Provider [phone] Allergies No known active allergies Medications naproxen (NAPROSYN) 500 mg tablet naproxen 500 mg tablet Active rosuvastatin (CRESTOR) 20 mg tablet rosuvastatin 20 mg tablet Active valsartan-hydro CHLOROthiazide (DIOVAN-HCT) 160-12.5 mg per tablet valsartan 160 mg-hydrochloroth iazide 12.5 mg tablet Active Active Problems Problem Noted Date Diagnosed Date Pain of left hip joint 05/09/2022 Surgical History Surgery Date Site/Laterality Comments FLUORO GUIDED ASPIRATION OR INJECTION LARGE JOINT LEFT 09/11/2022 Left FLUORO GUIDED ASPIRATION OR INJECTION LARGE JOINT LEFT 02/10/2023 Left Social History Tobacco Use Types Packs/Day Years Used Date Smoking Tobacco: Never Smokeless Tobacco: Never Tobacco Cessation:Counseling Given: Not Answered Personal Safety Answer Date Recorded Getting School Help Needed Not on file 05/28 Comments Unknown Sex and Gender Information Value Date Recorded Sex Assigned at Not on file Legal 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 Gender Identity Female 02/10/2023 6:20 AM UTILITY TECHNICIAN Sexual Orientation Not on file Obstetrics History Last Filed Vital Signs Vital Sign Reading [...] 09/01/2022 1:00 PM CDT Plan of Treatment Health Maintenance Due Date Last Done Comments Breast Cancer Screening-Mammogram 1968 Cervical Cancer Screening 1968 Colon Cancer Screening-Colonoscopy 1968 Depression Screening 1968 Hepatitis C Screening 1968 DTaP/Tdap/Td Vaccine (1 - Tdap) 12/25/1979 Hepatitis B Screening 1986 Regular Well Visit/Exam 18-64 1986 Zoster Vaccine (1 of 2) 2018 Covid-19 Vaccine ( - 2023-2 5 season) 2023 02/20/2021, 04/28/2020, 03/31/2020 Influenza Vaccine (#1) 2023 Pneumococcal vaccine <65 Aged Out No longer eligible based on patient's age to complete this topic Insurance [facility] PLUS [facility] PL[facility] Care Teams Rental Agent Relationship Specialty Start Date End Date No, Physician PCP - General 05/28/22
--- NOTE | 2024-05-08 18:48 | ECG_ITS ---
Test Date: 2024-05-08 18:54:22 Measurements Intervals [place] Rate: 99 P: 44 OH: 159 QRS: -4 QRSD: 107 T: 7 QT: 337 QTc: 433 Interpretive Statements SINUS RHYTHM INCOMPLETE RIGHT BUNDLE BRANCH BLOCK MINIMAL Q WAVES- HIGH LATERAL LEADS BORDERLINE T WAVE ABNORMALITY- INFERIOR LEADS BASELINE ARTIFACT- I, II, III, AVR, AVL,A VF, V5-V6 BORDERLINE ECG No previous ECG available for comparison Electronically Signed On 05-08-2024 19:08:01 POULTRY DRESSER by Hussein Mcdaniel D.O.
[2024-05-08 18:49] VITALS: BP 122/83; PULSE 83; RESP 18; TEMP 36.5; O2SAT 98
[2024-05-08 19:23] VITALS: BP 116/83; PULSE 82; RESP 20; TEMP 36.4; O2SAT 96
[2024-05-08] MEDS: ONDANSETRON INJ 4 MG/2 ML VIAL IV PUSH (20:18)
[2024-05-08] MEDS: MORPHINE SULFATE (*CRX) 4 MG/ML INJ IV PUSH (20:19)
[2024-05-08] MEDS: PANTOPRAZOLE SODIUM IV 40 MG VIAL IV PUSH (20:20)
[2024-05-08 20:35] LABS: BEDSIDEPREGUCG Negative (Negative)
--- OUTSIDE RECORDS SUMMARY | 2024-05-08 20:38 | XMS_ITS | Referral Summary ---
Author Organization [facility] Address [address] [place] [address] Care Team Providers Care Linen Clerk Name Role Phone No, Physician Primary Care Provider Allergies No known active allergies Medications naproxen [...] on file Legal Sex Female 8:10 AM PENAL OFFICER Gender Identity Female 02/10/2023 6:20 AM PENAL OFFICER Sexual Orientation Not on file Last Filed [...] of Treatment Not on file Insurance [facility]/PP[facility] Address: [address] [address] [place] [address] [facility]/PPO Address: [address] [address] [place] [id number] Care Teams Linen Clerk Relationship Specialty Start Date End Date No, Physician PCP - General 05/28/22
--- OUTSIDE RECORDS SUMMARY | 2024-05-08 20:38 | XMS_ITS | Clinical Summary ---
Author Organization [facility] Address [address] [place] [address] Care Team Providers Care Beach Lifeguard Name Role Phone Derick Heaton MD Primary Care Provider [phone] Allergies No known active allergies Medications No [...] KAJAL LORY DIGI Routine 01/24/2019 11:15 AM MEDICARE SALES REPRESENTATIVE Visit for screening mammogram from Last 3 Months or Most Recently Relevant to Health Maintenance Results * MG SCREENING W KAJAL LORY DIGI (01/24/2019 11:15 AM MEDICARE SALES REPRESENTATIVE) Anatomical Region Laterality Modality Breast Bilateral Mammography 01/24/2019 11:2 2 AM MEDICARE SALES REPRESENTATIVE Narrative 01/24/2019 11:23 AM MEDICARE SALES REPRESENTATIVE IMAGING STUDIES: MG SCREENING W KAJAL LORY [...] Relevant to Health Maintenance Insurance Care Teams Beach Lifeguard Relationship Specialty Start Date End Date Derick Heaton MD PCP - General OBGYN 01/20/19
--- OUTSIDE RECORDS SUMMARY | 2024-05-08 20:38 | XMS_ITS | Clinical Summary ---
Author Organization [facility] Address [address] [place] [address] Care Team Providers Care Dust Mixer Name Role Phone No, Physician Primary Care Provider [phone] Allergies No known active allergies Medications naproxen [...] on file Legal Sex Female 8:10 AM TRANSCRIPT EVALUATOR Gender Identity Female 02/10/2023 6:20 AM TRANSCRIPT EVALUATOR Sexual Orientation Not on file Obstetrics History [...] patient's age to complete this topic Insurance [facility] CHO[facility] PLUS Care Teams Dust Mixer Relationship Specialty Start Date End Date No, Physician PCP - General 05/28/22
[2024-05-08 20:39] LABS: Basophils Percent Auto 0.4 % (0.2-1.2); Eosinophils Absolute Auto 0.1 K/mm3 (0-0.3); Eosinophils Percent Auto 0.4 % (0-4.4); Hematocrit 41.4 % (37.0-47.0); Hemoglobin 14.2 g/dL (12.0-15.0); Immature Granulocyte Absolute 0.04 K/mm3 (0.00-0.031); Immature Granulocyte Percent A 0.4 % (0-0.5); Lymphocytes Absolute Auto 1.46 K/mm3 (0.9-3.2); Lymphocytes Percent Auto 12.9 % (18.3-44.2); Mean Corpuscular HGB Conc 34.3 g/dl (32-36); Mean Corpuscular Hemoglobin 31.2 pg (26-34); Mean Platelet Volume 9.5 fl (7.4-10.4); Monocytes Absolute Auto 1.1 K/mm3 (0.1-0.6); Monocytes Percent Auto 9.9 % (2.6-8.5); Neutrophils Absolute Auto 8.6 K/mm3 (1.3-6.7); Platelet Count Result 264 k/mm3 (150-375); Red Blood Count 4.55 M/mm3 (4.2-5.4); White Blood Count 11.3 K/mm3 (4.5-10.0)
[2024-05-08 20:45] LABS: Add Urine Microscopic? YES; Appearance Urine Turbid (Clear); Bacteria Urine None Seen /hpf; Bilirubin Urine Negative (Negative); Blood Urine Negative (Negative); Color Urine Yellow (Yellow); Glucose Urine UA Negative (Negative); Ketones Urine Negative (Negative); Leukocyte Esterase Ur Negative LEU/UL (Negative); Nitrate Urine Negative (Negative); Non Pathogenic Casts 0-2; Protein Urine Negative (Negative); RBC Urine 0-2 /hpf (0-2); Specific Grav Ur 1.016 (1.001-1.035); Squamous Epithelial Cell Urine Occasional /hpf (Few); WBC Urine 0-5 /hpf (0-3); pH Urine 7.5 (5.0-9.0)
[2024-05-08 20:51] LABS: Alanine Aminotransferase 111 U/L (6-35); Albumin Level 4.2 g/dL (3.5-5.1); Alkaline Phosphatase 93 U/L (38-126); Anion Gap 10 mmol/L (4-12); Aspartate Amino Transferase 236 U/L (14-36); Bilirubin,Total 1.2 mg/dL (0.2-1.3); Blood Urea Nitrogen 21 mg/dL (7-17); Calcium 9.7 mg/dL (8.4-10.2); Carbon Dioxide 26 mmol/L (22-30); Chloride 103 mmol/L (98-107); Estimated CRCL calculation 71 ml/min; Estimated Glomerular Filt Rate > 60; Glucose 91 mg/dL (65-110); Lipase 1363 U/L (23-300); Potassium 3.9 mmol/L (3.4-5.0); Sodium 139 mmol/L (137-145)
[2024-05-08 21:08] VITALS: BP 120/88; PULSE 75; RESP 17; O2SAT 98
--- NOTE | 2024-05-08 21:15 | ED_ITS ---
HPI - Abdominal Pain General Chief Complaint: Abdominal Pain <PARUL Benoit Last Filed: 05/09/24 01:45> Stated Complaint: epigastric pain <Guadalupe PARUL Domingo Last Filed: 05/09/24 01:45> Time Seen by Provider: 05/08/24 19:34 <PARUL Benoit Last Filed: 05/09/24 01:45> Source: patient <Guadalupe Rico PARUL Butts Last Filed: 05/09/24 01:45> Mode of arrival: ambulatory <PARUL Benoit Last Filed: 05/09/24 01:45> Limitations: no limitations <Guadalupe Butts PA-C Elena Last Filed: 05/09/24 01:45> History of Present Illness HPI narrative: This is a 53-year-old female that presents to the emergency department for epigastric pain. Ongoing since the afternoon. Reports the pain is burning in nature. No associated symptoms. Denies fevers, vomiting, urinary symptoms. < PARUL Benoit Last Filed: 05/09/24 01:45> Related Data Allergies/Adverse Reactions: Allergies Allergy/AdvReac Type Severity Reaction Status Date / Time No Known Allergies Allergy Verified 05/08/24 18:49 <Guadalupe Butts PA-C Elena Last Filed: 05/09/24 01:45> Review of Systems 2 Review of Systems: CONSTITUTIONAL: Denies fever GASTROINTESTINAL: Reports abdominal pain. Denies nausea, vomiting, or diarrhea. GENITOURINARY: Denies dysuria <Guadalupe Butts PA-C - Last Filed: 05/09/24 01:45> All systems reviewed & are unremarkable except as noted in HPI and below < Guadalupe Butts PA-C - Last Filed: 05/09/24 01:45> [facility] Past Medical History Medical History: Medical History Essential (primary) hypertension Familial hypercholesterolemia <PARUL Benoit Last Filed: 05/09/24 01:45> Surgical History Surgical History: Surgical History delivery delivered Previous section <Guadalupe Butts PA-C - Last Filed: 05/09/24 01:45> Family History Family History: Family History Mother Hypertension Mother Hypertension Other Cancer of pancreas Diabetes mellitus <Guadalupe Butts PA-C - Last Filed: 05/09/24 01:45> Social History Social History: Social History Smoking packs per day: 0 Smoking cigarettes per day: 0.0 Smoking status: Never smoker Alcohol intake: current Drinks per week: 4 Alcohol use details: occasional Substance use: never Do You Feel Safe in your Home?: Yes Lack of Transportation: No Lack of Food: Never True Current Housing: I Have Housing Concerned About Future Housing: No Difficulty Paying Gas/Electric Bills: No Difficulty Paying for Meds: No Currently Unemployed: No Education: Decline to Answer Difficulty w/ Childcare or Family Care: No Living arrangements: with family Occupation/Education: occupation 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 HEAD: Normocephalic, atraumatic. EYES: EOMI. CHEST: Clear to auscultation. No respiratory distress. No wheezes rales or rhonchi HEART: Regular rate and rhythm. No murmur heard. Normal peripheral pulses. ABDOMEN: Soft, nondistended, normal active bowel sounds. Tender to palpation in the epigstrium, without guarding EXTREMITIES: Normal range of motion. No edema. SKIN: Warm, dry, no rash. NEURO: No focal deficits. Alert and oriented x3. PSYCH: Normal mood and affect <PARUL eBnoit Last Filed: 05/09/24 01:45> Course Course Emergency Course: patient updated on her workup and need for admission <MARIANO Benoit Last Filed: 05/09/24 01:45> ARCHIVIST POLITICAL HISTORY/PA Physician Supervision Patient's HPI, Exam, and MDM were reviewed and I agreed with the workup and disposition done in the emergency department by the MLP. I was available for consultation, but was not directly involved with patient's care nor did I evaluate the patient. <Car Rangel MD - Last Filed: 05/09/24 07:28> Consultations Consultation #1: Spoke with Dr. Barrios who will consult. <Guadalupe Butts PA-C - Last Filed: 05/09/24 01:45> Date: 05/09/24 <Guadalupe Butts PA-C - Last Filed: 05/09/24 01:45> Consultation #2: Spoke with hospitalist about patient and workup who accepts admission. < Guadalupe Butts PA-C - Last Filed: 05/09/24 01:45> Date: 05/09/24 <Guadalupe Butts PA-C - Last Filed: 05/09/24 01:45> Vital Signs Vital signs: Vital Signs Temperature 36.5 C 05/08/24 18:49 Pulse Rate 83 05/08/24 18:49 Respiratory Rate 18 05/08/24 18:49 Blood Pressure 122/83 05/08/24 18:49 Pulse Oximetry 98 05/08/24 18:49 Temperature 36.5 C 05/09/24 04:00 Pulse Rate 63 05/09/24 04:00 Respiratory Rate 18 05/09/24 04:00 Blood Pressure 117/88 05/09/24 04:00 Pulse Oximetry 95 05/09/24 04:00 Oxygen Delivery Room Air 05/09/24 03:10 <Guadalupe Butts PA-C - Last Filed: 05/09/24 01:45> Vital Signs Temperature 36.5 C 05/08/24 18:49 Pulse Rate 83 05/08/24 18:49 Respiratory Rate 18 05/08/24 18:49 Blood Pressure 122/83 05/08/24 18:49 Pulse Oximetry 98 05/08/24 18:49 Temperature 36.5 C 05/09/24 04:00 Pulse Rate 63 05/09/24 04:00 Respiratory Rate 18 05/09/24 04:00 Blood Pressure 117/88 05/09/24 04:00 Pulse Oximetry 95 05/09/24 04:00 Oxygen Delivery Room Air 05/09/24 03:10 <Car Rangel MD - Last Filed: 05/09/24 07:28> MDM - Abdominal Pain MDM Narrative Medical decision making narrative: Patient presents to the emergency department for epigastric abdominal pain. She is afebrile and nontoxic appearing. Her vitals are stable. CBC with leukocytosis to 11.3. Metabolic panel with transaminitis. Her lipase is 1363. Urine without evidence of infection. CT abdomen and pelvis shows distended gallbladder with wall edema and mild pericholecystic stranding. Spoke with Dr. Barrios who will consult. Consult placed for GI. Patient started on IV antibiotics and hydrated. Spoke with hospitalist about patient and workup who accepts admission. <Guadalupe Butts PA-C - Last Filed: 05/09/24 01:45> Differential Diagnosis Differential diagnosis: Likely gastroenteritis, pancreatitis and other (GERD, PUD, biliary colic, cholecystitis) <Guadalupe Butts PA-C - Last Filed: 05/09/24 01:45> Lab Data Attestation: I reviewed the patient's lab results. <Guadalupe Butts PA-C - Last Filed: 05/09/24 01:45> Result diagrams: 05/08/24 20:28 05/08/24 20:28 <Guadalupe Butts PA-C - Last Filed: 05/09/24 01:45> Labs: Lab Results 05/08/24 05/08/24 Range/Units 20:28 20:33 WBC 11.3 H (4.5-10.0) K/mm3 RBC 4.55 (4.2-5.4) M/mm3 Hgb 14.2 (12.0-15.0) g/dL Hct 41.4 (37.0-47.0) % MCV 91.0 (80-100) fl MCH 31.2 (26-34) pg MCHC 34.3 (32-36) g/dl RDW 13.0 (11.5-14.5) % Plt Count 264 (150-375) k/mm3 MPV 9.5 (7.4-10.4) fl Immature Gran % (Auto) 0.4 (0-0.5) % Neut % (Auto) 76.0 H (45.5-73.1) % Lymph % (Auto) 12.9 L (18.3-44.2) % [place] % (Auto) 9.9 H (2.6-8.5) % Eos % (Auto) 0.4 (0-4.4) % Baso % (Auto) 0.4 (0.2-1.2) % Lymph # (Auto) 1.46 (0.9-3.2) K/mm3 [place] # (Auto) 1.1 H (0.1-0.6) K/mm3 Eos # (Auto) 0.1 (0-0.3) K/mm3 Baso # (Auto) 0.0 (0.0-0.1) K/mm3 Abs Immat Gran (auto) 0.04 H (0.00-0.031) K/mm3 Absolute Neuts (auto) 8.6 H (1.3-6.7) K/mm3 Absolute Nucleated RBC 0.000 (0.0-0.012) K/mm3 Nucleated RBC % 0.0 (0.0-0.2) % Sodium 139 (137-145) mmol/L Potassium 3.9 (3.4-5.0) mmol/L Chloride 103 (98-107) mmol/L Carbon Dioxide 26 (22-30) mmol/L Anion Gap 10 (4-12) mmol/L BUN 21 H (7-17) mg/dL Creatinine 0.72 (0.7-1.0) mg/dL Estim Creat Clear Calc 71 ml/min Estimated GFR > 60 (59 - ) Glucose 91 (65-110) mg/dL Calcium 9.7 (8.4-10.2) mg/dL Total Bilirubin 1.2 (0.2-1.3) mg/dL AST 236 H (14-36) U/L ALT 111 H (6-35) U/L Alkaline Phosphatase 93 (38-126) U/L Total Protein 7.0 (6.3-8.2) g/dL Albumin 4.2 (3.5-5.1) g/dL Lipase 1363 H (23-300) U/L Urine Color Yellow (Yellow) Urine Appearance Turbid H (Clear) Urine pH 7.5 (5.0-9.0) Ur Specific [place] 1.016 (1.001-1.035) Urine Protein Negative (Negative) mg/dL Urine Glucose (UA) Negative (Negative) mg/dL Urine Ketones Negative (Negative) mg/dL Ur Blood (Man) Negative (Negative) Urine Nitrate Negative (Negative) Urine Bilirubin Negative (Negative) Urine Urobilinogen 1.0 (<2.0) mg/dL Leukocyte Esterase Rfl Negative (Negative) LISA/UL Urine RBC 0-2 (0-2) /hpf Urine WBC 0-5 (0-3) /hpf Ur Squamous Epith Cells Occasional (Few) /hpf Urine Bacteria None seen /hpf Urine Casts 0-2 POC Urine HCG, Qual Negative (Negative) <Guadalupe Butts PA-C - Last Filed: 05/09/24 01:45> Lab Results 05/08/24 05/08/24 Range/Units 20:28 20:33 WBC 11.3 H (4.5-10.0) K/mm3 RBC 4.55 (4.2-5.4) M/mm3 Hgb 14.2 (12.0-15.0) g/dL Hct 41.4 (37.0-47.0) % MCV 91.0 (80-100) fl MCH 31.2 (26-34) pg MCHC 34.3 (32-36) g/dl RDW 13.0 (11.5-14.5) % Plt Count 264 (150-375) k/mm3 MPV 9.5 (7.4-10.4) fl Immature Gran % (Auto) 0.4 (0-0.5) % Neut % (Auto) 76.0 H (45.5-73.1) % Lymph % (Auto) 12.9 L (18.3-44.2) % [place] % (Auto) 9.9 H (2.6-8.5) % Eos % (Auto) 0.4 (0-4.4) % Baso % (Auto) 0.4 (0.2-1.2) % Lymph # (Auto) 1.46 (0.9-3.2) K/mm3 [place] # (Auto) 1.1 H (0.1-0.6) K/mm3 Eos # (Auto) 0.1 (0-0.3) K/mm3 Baso # (Auto) 0.0 (0.0-0.1) K/mm3 Abs Immat Gran (auto) 0.04 H (0.00-0.031) K/mm3 Absolute Neuts (auto) 8.6 H (1.3-6.7) K/mm3 Absolute Nucleated RBC 0.000 (0.0-0.012) K/mm3 Nucleated RBC % 0.0 (0.0-0.2) % Sodium 139 (137-145) mmol/L Potassium 3.9 (3.4-5.0) mmol/L Chloride 103 (98-107) mmol/L Carbon Dioxide 26 (22-30) mmol/L Anion Gap 10 (4-12) mmol/L BUN 21 H (7-17) mg/dL Creatinine 0.72 (0.7-1.0) mg/dL Estim Creat Clear Calc 71 ml/min Estimated GFR > 60 (59 - ) Glucose 91 (65-110) mg/dL Calcium 9.7 (8.4-10.2) mg/dL Total Bilirubin 1.2 (0.2-1.3) mg/dL AST 236 H (14-36) U/L ALT 111 H (6-35) U/L Alkaline Phosphatase 93 (38-126) U/L Total Protein 7.0 (6.3-8.2) g/dL Albumin 4.2 (3.5-5.1) g/dL Lipase 1363 H (23-300) U/L Urine Color Yellow (Yellow) Urine Appearance Turbid H (Clear) Urine pH 7.5 (5.0-9.0) Ur Specific [place] 1.016 (1.001-1.035) Urine Protein Negative (Negative) mg/dL Urine Glucose (UA) Negative (Negative) mg/dL Urine Ketones Negative (Negative) mg/dL Ur Blood (Man) Negative (Negative) Urine Nitrate Negative (Negative) Urine Bilirubin Negative (Negative) Urine Urobilinogen 1.0 (<2.0) mg/dL Leukocyte Esterase Rfl Negative (Negative) LISA/UL Urine RBC 0-2 (0-2) /hpf Urine WBC 0-5 (0-3) /hpf Ur Squamous Epith Cells Occasional (Few) /hpf Urine Bacteria None seen /hpf Urine Casts 0-2 POC Urine HCG, Qual Negative (Negative) <Car Rangel MD - Last Filed: 05/09/24 07:28> Imaging Data Radiologist's impression: ITS Impressions Abdomen/Pelvis CT 05/09/24 06:22 Impression: Gallbladder wall thickening. Correlate for possible acute cholecystitis. Consider ultrasound and/or HIDA scan for further evaluation. CT abdomen pelvis: Distended gallbladder with wall edema and mild pericholecystic stranding. Cholecystitis not excluded. No biliary dilatation. Hepatic steatosis. No bowel obstruction or inflammation. Normal appendix. No hydronephrosis or renal calculus <Guadalupe Butts PA-C - Last Filed: 05/09/24 01:45> ITS Impressions Abdomen/Pelvis CT 05/09/24 06:22 Impression: Gallbladder wall thickening. Correlate for possible acute cholecystitis. Consider ultrasound and/or HIDA scan for further evaluation. <Car Rangel MD - Last Filed: 05/09/24 07:28> Critical Care Time Critical Care Time Critical Care Time: No <Guadalupe Butts PA-C - Last Filed: 05/09/24 01:45> Discharge Plan Discharge Clinical Impression: Acute cholecystitis Acute pancreatitis Qualifiers: Pancreatitis type: biliary Acute pancreatitis complication: no infection or necrosis Qualified Code(s): K85.10 - Biliary acute pancreatitis without necrosis or infection <Guadalupe Butts PA-C - Last Filed: 05/09/24 01:45> Patient Disposition: Still a Patient <Guadalupe Butts PA-C - Last Filed: 05/09/24 01:45> Condition: Stable <Guadalupe Butts PA-C - Last Filed: 05/09/24 01:45>
[2024-05-08] MEDS: SODIUM CHLORIDE 0.9% IV 1,000 ML 999 ML IV CONT (22:49)
[2024-05-09] VITALS (9 sets, daily range): BP systolic 103–134; BP diastolic 63–88; PULSE 57–90; RESP 16–20; TEMP 36.1–36.6; O2SAT 95–100; BMI 27.3; BMI 27.4
--- NOTE | 2024-05-09 01:18 | PM.IMHP ---
H&P: HPI History of Present Illness Date/Time: 05/09/24 01:18 Chief Complaint: 1. Epigastric pain 2. Nausea Narrative: Sherri Burch this is a 53-year-old female with a medical history significant for obesity, dyslipidemia, hypertension After consuming lunch which consisted of rice and chicken, she shortly after developed epigastric pains; which were sharp in nature, radiates to the back; aggravated by meals/drinks; associated with nausea w/o vomiting, malaise, fatigue, anorexia, chills and anxiety. She denies vomiting, diarrhea, dizziness or chest pain. she does not smoke/chew tobacco, drink alcohol or consume recreational/illicit drugs. Work-up findings: WbC 11 BUN 21 Cr 0.72 AST 236 ALT 11 Lipase 1363 Influenza A: detected CTAP: Pending; on evaluation findings are concerning for pancreatitis with cholecystitis. Sherri Burch will be admitted, evaluated and managed for acute pancreatitis and acute cholecystitis. Review of Systems Review of Systems: All systems reviewed & are unremarkable except as noted in HPI and below PMFSH Past Medical History Medical History Essential (primary) hypertension Familial hypercholesterolemia Surgical History Surgical History delivery delivered Previous section Family History Family History Mother Hypertension Mother Hypertension Other Cancer of pancreas Diabetes mellitus Social History Social History Smoking packs per day: 0 Smoking cigarettes per day: 0.0 Smoking status: Never smoker Alcohol intake: current Drinks per week: 4 Alcohol use details: occasional Substance use: never Do You Feel Safe in your Home?: Yes Lack of Transportation: No Lack of Food: Never True Current Housing: I Have Housing Concerned About Future Housing: No Difficulty Paying Gas/Electric Bills: No Difficulty Paying for Meds: No Currently Unemployed: No Education: Decline to Answer Difficulty w/ Childcare or Family Care: No Living arrangements: with family Occupation/Education: occupation 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 Gender identity (if verbalized by the patient): Female Spiritual care concerns: No Meds Home Medications and Allergies Home Medications ?Medication ?Instructions ?Recorded ?Confirmed ?Type rosuvastatin 20 mg tablet See Rx Instructions .Route 03/27/23 05/09/24 Rx .COMPLEX #90 tabs valsartan 160 See Rx Instructions .Route 03/27/23 05/09/24 Rx mg-hydrochlorothiazide 12.5 mg .COMPLEX #90 tabs tablet Allergies Allergy/AdvReac Type Severity Reaction Status Date / Time No Known Allergies Allergy Verified 05/08/24 18:49 Vital Signs Vital Signs - 24 hr 05/08/24 18:49 05/08/24 19:23 05/08/24 21:08 Temperature 97.7 F 97.5 F L Pulse Rate 83 82 75 Respiratory Rate 18 20 17 Blood Pressure 122/83 116/83 120/88 Pulse Oximetry 98 96 98 05/09/24 01:13 Temperature Pulse Rate 77 Respiratory Rate 18 Blood Pressure 111/81 Pulse Oximetry 96 H&P: Results Labs Labs: Short CBC 05/08/24 Range/Units 20:28 WBC 11.3 H (4.5-10.0) K/mm3 Hgb 14.2 (12.0-15.0) g/dL Hct 41.4 (37.0-47.0) % Plt Count 264 (150-375) k/mm3 BMP 05/08/24 20:28 Sodium 139 Potassium 3.9 Chloride 103 Carbon Dioxide 26 BUN 21 H Creatinine 0.72 Glucose 91 Calcium 9.7 Liver Function 05/08/24 Range/Units 20:28 Total Bilirubin 1.2 (0.2-1.3) mg/dL AST 236 H (14-36) U/L ALT 111 H (6-35) U/L Alkaline Phosphatase 93 (38-126) U/L Albumin 4.2 (3.5-5.1) g/dL Urine 05/08/24 Range/Units 20:28 Urine Color Yellow (Yellow) Urine Appearance Turbid H (Clear) Urine pH 7.5 (5.0-9.0) Ur Specific [place] 1.016 (1.001-1.035) Urine Protein Negative (Negative) mg/dL Urine Glucose (UA) Negative (Negative) mg/dL Assessment and Plan Assessment and plan (1) Acute cholecystitis: Code(s): K81.0 - Acute cholecystitis Status: Acute (2) Acute pancreatitis: Qualifiers: Acute pancreatitis complication: no infection or necrosis Pancreatitis type: biliary Qualified Code(s): K85.10 - Biliary acute pancreatitis without necrosis or infection Code(s): K85.90 - Acute pancreatitis without necrosis or infection, unspecified Status: Acute Plan Acute and principal conditions 1. Acute pancreatitis. 2. Acute cholecystitis. 3. Influenza A infection Rx A. IVFs; Analgesia B. Anti-emetics C. NPO; advance diet as tolerated D. General surgery consulted E. Droplet precautions Chronic and stable conditions 1. Obesity. BMI 27 2. Dyslipidemia. 3. Hypertension. Miscellaneous care 1. Code status. Full 2. Nutrition. NPO 3. VTE prophylaxis. On SCDs; [facility] Hospitalist MIPS Advance Care Plan I have confirmed that the patient's Advanced Care Plan is present, code status is documented, or surrogate decision maker is listed in patient medical record.: Yes Medication Reconciliation I have utilized all available resources to obtain, update and review the patients current medications (includes all prescriptions, OTC, herbals, cannabis, and nutritional supplements).: Yes The patient is not eligible for med reconciliation; the patient is in a emergent medical situation where delaying treatment would jeopardize the patients health.: Yes
[2024-05-09] MEDS: MORPHINE SULFATE (*CRX) 4 MG/ML INJ IV PUSH (01:20)
[2024-05-09] MEDS: SODIUM CHLORIDE 0.9% IV 1,000 ML 125 ML IV CONT (01:21)
[2024-05-09] MEDS: metroNIDAZOLE 500 MG/ISO 100ML 500 MG/100 ML BAG 100 MG IVPB (01:55)
--- NOTE | 2024-05-09 02:54 | ADMGEN ---
This patient, Sherri Burch, was admitted to [facility] Surg Room 324-02. Patient/family oriented to hospital policies and general routines including ID bracelet, bed and alarms, visiting hours, pain management, procedures, bathroom and other care routines, personal items, smoking policy, room service/diet, and visiting hours. Information on how to activate the Rapid Response Team has been discussed. Patient/Family are encouraged to report perceived risks to care and to ask questions if they do not understand what they are told or what they should do.
[2024-05-09] MEDS: DEXTROSE 5%/0.9% SOD CHL 1,000 ML 125 ML IV CONT ×4 (03:12→23:54)
[2024-05-09] MEDS: PIPERACILLN/TAZ 3.375GM/NS50ML 3.375 GM/50 ML BAG IVPB ×4 (05:10→22:10)
[2024-05-09] MEDS: KETOROLAC 15 MG/ML VIAL (*BKC) IV PUSH ×3 (05:10→17:11)
--- NOTE | 2024-05-09 07:18 | P.PNIM_ITS ---
Progress Note: A&P Assessment and Plan (1) Acute cholecystitis: Code(s): K81.0 - Acute cholecystitis Status: Acute Assessment and Plan: - CT abdomen/pelvis: Gallbladder wall thickening. Correlate for possible acute cholecystitis. Consider ultrasound and/or HIDA scan for further evaluation. - RUQ US ordered Evaluation of the pancreas is limited by overlying bowel gas. Cholelithiasis. Gallbladder wall thickening which may be secondary to underdistention. - Gentle IV fluid resuscitation - Start Zosyn 3.375 mg every 6 hours - Analgesics - Diet:NPO - Monitor vital signs, I and O's, check stool output, neuro status and patient is a fall risk - Monitor serum electrolytes and CBC - Monitor lactic acid - Consult general surgery, appreciate assistance and recommendation * Will get MRCP to rule out choledocholithiasis, continue to trend labs and exam need interval cholecystectomy - Consult general GI, appreciate assistance and recommendation * ok to advance diet to clears if tolerated * if diet tolerated, may consider HIDA scan tomorrow to evaluate gallbladder function * likely need an outpatient cholecystectomy once acute illness has resolved but these recommendations will be per surgery * recheck LFT's tomorrow * continue supportive care with pain management and antiemetics (2) Acute pancreatitis: Qualifiers: Acute pancreatitis complication: no infection or necrosis Pancreatitis type: biliary Qualified Code(s): K85.10 - Biliary acute pancreatitis without necrosis or infection Code(s): K85.90 - Acute pancreatitis without necrosis or infection, unspecified Status: Acute Assessment and Plan: - Lipase 1363 on admission - CT abdomen/pelvis: Gallbladder wall thickening. Correlate for possible acute cholecystitis. Consider ultrasound and/or HIDA scan for further evaluation. - IV NS 125 ml/hr - Analgesics - Antiemetics (3) Essential (primary) hypertension: Code(s): I10 - Essential (primary) hypertension Status: Acute Assessment and Plan: Chronic - patient is not on antihypertensives. Valsartan-HCTZ last filled in 06/2023. - blood pressures remain stable, continue to monitor (4) Influenza: Code(s): J11.1 - Influenza due to unidentified influenza virus with other respiratory manifestations Status: Acute Assessment and Plan: Asymptomatic. Viral panel: Flu A Time Spent With Patient Time with patient: 25 - 35 minutes Subjective Date/time seen: 05/09/24 07:18 Interval history: 53-year-old female with a past medical history significant for obesity, dyslipidemia, hypertension who presents to the hospital for epigastric pain and nausea. Patient is pleasant lying comfortably in bed with family at bedside. She continues to endorse epigastric and right upper quadrant pain but notes his improved and is well controlled on the pain regimen. She denies any nausea or vomiting at this time. She has no other complaints denying chest pain, palpitations, and shortness of breath. Review of Systems Review of Systems: All systems reviewed & are unremarkable except as noted in HPI and below Exam Narrative: AF HR 90 RR 16 SpO2 100 BP 134/73 General: female in no acute respiratory distress who is nontoxic appearing, lying semi recumbent in bed. HEENT: Normocephalic. Atraumatic. Extraocular movement intact. Sclera clear and anicteric. No facial asymmetry. Chest: Lungs are clear to auscultation bilaterally. No wheezes or crackles. CV: Heart was regular rate and rhythm. S1-S2. No murmurs, gallops, or rubs. Abd: Abdomen was soft. Tender epigastric and RUQ. Nondistended. Positive bowel sounds. Neuro: Patient is alert. Speech is clear. Objective Data Vital Signs Vital Signs: Vital Signs - 24 hr 05/08/24 18:49 05/08/24 19:23 05/08/24 21:08 Temperature 97.7 F 97.5 F L Pulse Rate 83 82 75 Respiratory Rate 18 20 17 Blood Pressure 122/83 116/83 120/88 Pulse Oximetry 98 96 98 Oxygen Delivery 05/09/24 00:00 05/09/24 01:13 05/09/24 02:22 Temperature Pulse Rate 77 65 Respiratory Rate 18 18 18 Blood Pressure 111/81 119/83 Pulse Oximetry 96 95 Oxygen Delivery 05/09/24 03:10 05/09/24 04:00 Temperature 97.7 F Pulse Rate 63 Respiratory Rate 18 Blood Pressure 117/88 Pulse Oximetry 95 Oxygen Delivery Room Air Intake/Output Intake/Output: Intake & Output 05/06/24 05/07/24 05/08/24 05/09/24 23:59 23:59 23:59 23:59 Intake Total 50 Balance 50 Meds/Results Medications: Active Medications Generic Name Dose Route Start Last Admin Trade Name Freq PRN Reason Stop Dose Admin Acetaminophen 650 mg 05/09/24 01:16 Acetaminophen 325 Mg Tablet PO Q4H PRN Mild Pain (1-3) or Fever Bisacodyl 10 mg 05/09/24 01:16 Bisacodyl 10 Mg Suppository RECTAL ONCE PRN Constipation Docusate Sodium 100 mg 05/09/24 09:00 Docusate Sodium 100 Mg Capsule PO BID FREDDY Heparin Sodium (Porcine) 5,000 units 05/09/24 09:00 Heparin Sodium 5,000 Units/Ml Vial SUB-Q Q12HR FREDDY Sodium Chloride 1,000 mls @ 125 mls/hr 05/09/24 01:00 05/09/24 01:21 Normal Saline Iv IV CONT 125 mls/hr .Q8H FREDDY Administration Dextrose/Sodium Chloride 1,000 mls @ 125 mls/hr 05/09/24 01:20 05/09/24 03:12 Dextrose 5% Sodium Chloride 0.9% IV CONT 125 mls/hr .Q8H FREDDY Administration Piperacillin/Tazobactam/Dextrose 3.375 gm in 50 mls @ 100 mls/hr 05/09/24 05:00 05/09/24 05:10 Zosyn 3.375 Gm/Ns 50 Ml IVPB 100 mls/hr Q6H FREDDY Administration Ketorolac Tromethamine 15 mg 05/09/24 04:15 05/09/24 05:10 Ketorolac 15 Mg/Ml Vial (*Bkc) IV PUSH 05/09/24 18:01 15 mg Q6HR FREDDY Administration Melatonin 5 mg 05/09/24 01:16 Melatonin 5 Mg Tablet PO HS PRN Insomnia Ondansetron HCl 4 mg 05/09/24 01:16 Ondansetron Inj 4 Mg/2 Ml Vial IV PUSH Q6H PRN Nausea And Vomiting Prochlorperazine Edisylate 10 mg 05/09/24 01:16 Prochlorperazine Edisylate 10 Mg/2 Ml Vial IV PUSH Q6H PRN Nausea And Vomiting Radiology Results: ITS Impressions Abdomen/Pelvis CT 05/09/24 06:22 Impression: Gallbladder wall thickening. Correlate for possible acute cholecystitis. Consider ultrasound and/or HIDA scan for further evaluation. Labs Labs: Laboratory Results - last 24 hr 05/08/24 05/08/24 20:28 20:33 WBC 11.3 H RBC 4.55 Hgb 14.2 Hct 41.4 MCV 91.0 MCH 31.2 MCHC 34.3 RDW 13.0 Plt Count 264 MPV 9.5 Immature Gran % (Auto) 0.4 Neut % (Auto) 76.0 H Lymph % (Auto) 12.9 L [place] % (Auto) 9.9 H Eos % (Auto) 0.4 Baso % (Auto) 0.4 Lymph # (Auto) 1.46 [place] # (Auto) 1.1 H Eos # (Auto) 0.1 Baso # (Auto) 0.0 Abs Immat Gran (auto) 0.04 H Absolute Neuts (auto) 8.6 H Absolute Nucleated RBC 0.000 Nucleated RBC % 0.0 Sodium 139 Potassium 3.9 Chloride 103 Carbon Dioxide 26 Anion Gap 10 BUN 21 H Creatinine 0.72 Estim Creat Clear Calc 71 Estimated GFR > 60 Glucose 91 Calcium 9.7 Total Bilirubin 1.2 AST 236 H ALT 111 H Alkaline Phosphatase 93 Total Protein 7.0 Albumin 4.2 Lipase 1363 H Urine Color Yellow Urine Appearance Turbid H Urine pH 7.5 Ur Specific [place] 1.016 Urine Protein Negative Urine Glucose (UA) Negative Urine Ketones Negative Ur Blood (Man) Negative Urine Nitrate Negative Urine Bilirubin Negative Urine Urobilinogen 1.0 Leukocyte Esterase Rfl Negative Urine RBC 0-2 Urine WBC 0-5 Ur Squamous Epith Cells Occasional Urine Bacteria None seen Urine Casts 0-2 POC Urine HCG, Qual Negative Quality VTE Prophylaxis VTE prophylaxis: pharmacologic ordered
[2024-05-09 07:39] LABS: Basophils Absolute Auto 0.1 K/mm3 (0.0-0.1); Basophils Percent Auto 0.7 % (0.2-1.2); Eosinophils Percent Auto 0.4 % (0-4.4); Hematocrit 42.1 % (37.0-47.0); Hemoglobin 13.8 g/dL (12.0-15.0); Immature Granulocyte Absolute 0.02 K/mm3 (0.00-0.031); Immature Granulocyte Percent A 0.3 % (0-0.5); Lymphocytes Absolute Auto 1.18 K/mm3 (0.9-3.2); Lymphocytes Percent Auto 16.5 % (18.3-44.2); Mean Corpuscular HGB Conc 32.8 g/dl (32-36); Mean Corpuscular Hemoglobin 30.9 pg (26-34); Mean Corpuscular Volume 94.2 fl (80-100); Mean Platelet Volume 9.4 fl (7.4-10.4); Monocytes Absolute Auto 0.5 K/mm3 (0.1-0.6); Monocytes Percent Auto 6.7 % (2.6-8.5); Neutrophils Absolute Auto 5.4 K/mm3 (1.3-6.7); Neutrophils Percent Auto 75.4 % (45.5-73.1); Platelet Count Result 248 k/mm3 (150-375); Red Blood Count 4.47 M/mm3 (4.2-5.4); Red Cell Distribution Width 13.1 % (11.5-14.5); White Blood Count 7.2 K/mm3 (4.5-10.0)
[2024-05-09 08:03] LABS: Alanine Aminotransferase 571 U/L (6-35); Albumin Level 3.8 g/dL (3.5-5.1); Alkaline Phosphatase 93 U/L (38-126); Anion Gap 9 mmol/L (4-12); Aspartate Amino Transferase 675 U/L (14-36); Bilirubin,Total 1.6 mg/dL (0.2-1.3); Blood Urea Nitrogen 13 mg/dL (7-17); Calcium 8.7 mg/dL (8.4-10.2); Carbon Dioxide 23 mmol/L (22-30); Chloride 106 mmol/L (98-107); Estimated CRCL calculation 93 ml/min; Estimated Glomerular Filt Rate > 60; Glucose 101 mg/dL (65-110); Potassium 4.2 mmol/L (3.4-5.0); Sodium 138 mmol/L (137-145)
--- NOTE | 2024-05-09 09:32 | PC.NURSE ---
Spoke to Tatyana MI[employer] AUDIT CLERK in regards to holding AM meds due to possible surgery.
--- NOTE | 2024-05-09 10:49 | P.CONGI_ITS ---
<Statement entered by Brian English MD - 05/09/24 16:43> I, Brian English MD, have provided a substantive portion of the care of this patient and discussed the patient with my Nurse Practitioner. I have reviewed any new relevant radiographic and laboratory results including medications. I agree with her documentation as noted below.?I personally performed the medical decision making and much of the history and exam for this encounter. briefly, she is here with new onset of severe upper abdominal pain and diagnosed with GS pancreatitis and elevated liver enzymes, alcohol use only social and denies previous pancreatitis. Plan is medical care for pancreatitis, trend lft;s, iv fluids and MRCP to assess biliary system. Also surgery on board, probably will need interval cholecystectomy. Assessment and Plan Assessment and plan (1) Acute cholecystitis: Code(s): K81.0 - Acute cholecystitis <Tangela Rehman APRN - Last Filed: 05/09/24 12:46> Status: Acute <Tangela Rehman APRN - Last Filed: 05/09/24 12:46> (2) Acute pancreatitis: Qualifiers: Acute pancreatitis complication: no infection or necrosis P ancreatitis type: biliary Qualified Code(s): K85.10 - Biliary acute pancreatitis without necrosis or infection <Tangela Rehman APRN - Last Filed: 05/09/24 12:46> Code(s): K85.90 - Acute pancreatitis without necrosis or infection, unspecified <Tangela Rehman APRN - Last Filed: 05/09/24 12:46> Status: Acute <Tangela Rehman APRN - Last Filed: 05/09/24 12:46> (3) Influenza A: Code(s): J10.1 - Influenza due to other identified influenza virus with other respiratory manifestations <Tangela Rehman APRN - Last Filed: 05/09/24 12:46> Status: Acute <Tangela Rehman APRN - Last Filed: 05/09/24 12:46> (4) Elevated LFTs: Code(s): R79.89 - Other specified abnormal findings of blood chemistry < Tangela Rehman APRN - Last Filed: 05/09/24 12:46> Status: Acute <Tangela McintoshDELONTE duboisN - Last Filed: 05/09/24 12:46> (5) Elevated lipase: Code(s): R74.8 - Abnormal levels of other serum enzymes <Tangela Woo DELONTE RehmanN - Last Filed: 05/09/24 12:46> Status: Acute <Tangela Woo DELONTE RehmanN - Last Filed: 05/09/24 12:46> Assessment and Plan: 1. Acute pancreatitis/acute cholecystitis/elevated LFT's/elevated lipase: P maurice has never had an EGD or colonoscopy. She had an acute onset of severe epigastric pain that started yesterday around 3:30 p.m.. This pain was accompanied with nausea. CT scan showed gallbladder wall thickening but normal appearing pancreas. Ultrasound showed limited evaluation of the pancreas secondary to overlying bowel gas. Gallstones noted within the gallbladder, gallbladder wall thickening which may be secondary to underdistention. Common bile duct measuring 2.9 mm. LFT's increased since admission showing total bilirubin 1.2-->1.6, AST 236-->675, ALT 111-->571 and alkaline phosphatase 93. Lipase yesterday elevated at 1363. * No signs of biliary obstruction with normal caliber CBD at 2.9 mm * pain improved since admission * ok to advance diet to clears if tolerated * if diet tolerated, may consider HIDA scan tomorrow to evaluate gallbladder function * patient will likely need an outpatient cholecystectomy once acute illness has resolved but these recommendations will be per surgery * recheck LFT's tomorrow * continue supportive care with pain management and antiemetics 2. Influenza A: Being monitored by primary care team. Thank you bernabe much for allowing me to share in the care of this very nice patient. This report may have been done utilizing a voice recognition system. Attempts have been made to correct errors. However, there may be uncorrected grammatical, spelling, and recognition errors present. <Tangela Rehman APRN - Last Filed: 05/09/24 12:46> GI Consult Note Consult date/time: 05/09/24 10:49 <Tangela Rehman APRN - Last Filed: 05/09/24 12:46> Reason for consult: Acute pancreatitis <Tangela Chilo Rehman, INDUSTRIAL RELATIONS WORKER - Last Filed: 05/09/24 12:46> HPI: This is a pleasant 53 year old female with a past medical surgical history of hypertension, hyperlipidemia, and obesity presented to the ER room 05/08/2024 with complaints of epigastric pain and nausea. GI consulted for acute pancreatitis. She was accompanied by her mother Leandra and father throughout the entire visit. She reports the pain started around 3:30 pm on 05/08/[address] home[address] She describes the pain as burning, radiating from the epigastric region to the back. The pain was severe and came on suddenly. She had two huge attacks of pain. Denies any pain since being given pain medications in the ER. Reports nausea and states she almost vomited this morning but medications have helped. Denies odynophagia and dysphagia. Denies reflux or regurgitation. She has not eaten anything since the pain started yesterday so is unable to say if pain got worse with PO intake. Bowel movements are typically once daily, formed stools. Denies blood in stool or melena. Denies smoking or marijuana use. Drinks alcohol occasionally, socially. Mother reports that she had her gallbladder removed laparoscopically several years ago. Denies family history of gastrointestinal cancers or inflammatory bowel disease. Father diagnosed with pancreatic cancer in his late 60s or early 70s. Denies any known factors that may have contributed to this acute episode of pancreatitis. ENDOSCOPY HISTORY: EGD: Patient has never had an EGD COLONOSCOPY: Patient has never had a colonoscopy but reports having a Cologuard test 3 years ago which was normal. LABS AND STOOL STUDIES: LABS 05/09/2024: WBC 7138, potassium 4.2, BUN 13, creatinine 0.61, GFR > 60 WBC 7, HGB 14, HCT 42, MCV 94, platelets 248 Total bilirubin 1.6, AST 675, ALT 571, alkaline phosphatase 93, calcium 8.7 and albumin 3.8 LABS 05/08/2024: Total bilirubin 1.2, AST 236, ALT 111, alkaline phosphatase 93, lipase 1363 IMAGING: Abdominal ultrasound 05/09/2024: IMPRESSION: Evaluation of the pancreas is limited by overlying bowel gas. Cholelithiasis. Gallbladder wall thickening which may be secondary to underdistention. CT abd/pelvis w/contrast 05/09/2024: Impression: Gallbladder wall thickening. Correlate for possible acute cholecystitis. Consider ultrasound and/or HIDA scan for further evaluation. Abdominal Ultrasound 10/09/2021: IMPRESSION: 1. Normal sonographic study of the gallbladder. CT abd/pelvis w/contrast 10/08/2021 IMPRESSION: No CT finding that would explain right upper quadrant pain. Hypoenhancing cervix, a nonspecific finding. Gynecology referral may be advisable to exclude cervical pathology. <Tangela Rehman APRN - Last Filed: 05/09/24 12:46> Review of Systems 2 Constitutional: Constitutional: Reports as per HPI <Tangela Rehman APRN - Last Filed: 05/09/24 12:46> ENT: Reports as per HPI <Tangela Rehman APRN - Last Filed: 05/09/24 12:46> Cardiovascular: Cardiovascular: Reports as per HPI, Denies chest pain and Denies dyspnea <Tangela Rehman APRN - Last Filed: 05/09/24 12:46> Respiratory: Respiratory: Denies cough and Denies dyspnea <Tangela Rehman APRN - Last Filed: 05/09/24 12:46> Gastrointestinal: Gastrointestinal: Reports as per HPI <Tangela Rehman APRN - Last Filed: 05/09/24 12:46> Musculoskeletal: Musculoskeletal: Reports as per HPI <Tangela Rehman APRN - Last Filed: 05/09/24 12:46> Integumentary/Breasts: Skin/Breast: Reports as per HPI <Tangela Rehman APRN - Last Filed: 05/09/24 12:46> Psychiatric: Psychiatric: Reports as per HPI <Tangela Rehman APRN - Last Filed: 05/09/24 12:46> Endocrine: Endocrine: Reports no additional endocrine complaints <Tangela Rehman APRN - Last Filed: 05/09/24 12:46> Hematologic/Lymphatic: Hematologic/Lymphatic: Reports no additional hematologic/lymphatic complaints <Tangela Rehman APRN - Last Filed: 05/09/24 12:46> [facility] Past Medical History Medical History: Medical History Familial hypercholesterolemia Essential (primary) hypertension <Tangela Rehman APRN - Last Filed: 05/09/24 12:46> Surgical History Surgical History: Surgical History delivery delivered Previous section <Tangelarosemary Rehman APRN - Last Filed: 05/09/24 12:46> Family History Family History: Family History Mother Hypertension Mother Hypertension Other Cancer of pancreas Diabetes mellitus <Tangela Rehman APRN - Last Filed: 05/09/24 12:46> Social History Social History: Social History Smoking packs per day: 0 Smoking cigarettes per day: 0.0 Smoking status: Never smoker Alcohol intake: current Drinks per week: 4 Alcohol use details: occasional Substance use: never Do You Feel Safe in your Home?: Yes Lack of Transportation: No Lack of Food: Never True Current Housing: I Have Housing Concerned About Future Housing: No Difficulty Paying Gas/Electric Bills: No Difficulty Paying for Meds: No Currently Unemployed: No Education: Decline to Answer Difficulty w/ Childcare or Family Care: No Living arrangements: with family Occupation/Education: occupation 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 Gender identity (if verbalized by the patient): Female Spiritual care concerns: No <Tangela Rehman APRN - Last Filed: 05/09/24 12:46> Meds Home Medications and Allergies Home medications: Home Medications ?Medication ?Instructions ?Recorded ?Confirmed ?Type rosuvastatin 20 mg tablet See Rx Instructions .Route 03/27/23 05/09/24 Rx .COMPLEX #90 tabs valsartan 160 See Rx Instructions .Route 03/27/23 05/09/24 Rx mg-hydrochlorothiazide 12.5 mg .COMPLEX #90 tabs tablet <Tangela Rehman APRN - Last Filed: 05/09/24 12:46> Allergies/Adverse reactions: Allergies Allergy/AdvReac Type Severity Reaction Status Date / Time No Known Allergies Allergy Verified 05/08/24 18:49 <Tangela Rehman APRN - Last Filed: 05/09/24 12:46> Vital Signs Vital Signs - 24 hr 05/08/24 18:49 05/08/24 19:23 05/08/24 21:08 Temperature 97.7 F 97.5 F L Pulse Rate 83 82 75 Respiratory Rate 18 20 17 Blood Pressure 122/83 116/83 120/88 Pulse Oximetry 98 96 98 Oxygen Delivery 05/09/24 00:00 05/09/24 01:13 05/09/24 02:22 Temperature Pulse Rate 77 65 Respiratory Rate 18 18 18 Blood Pressure 111/81 119/83 Pulse Oximetry 96 95 Oxygen Delivery 05/09/24 03:10 05/09/24 04:00 05/09/24 09:05 Temperature 97.7 F 96.9 F L Pulse Rate 63 57 L Respiratory Rate 18 16 Blood Pressure 117/88 106/63 Pulse Oximetry 95 97 Oxygen Delivery Room Air <Tangela Rehman APRN - Last Filed: 05/09/24 12:46> Exam 2 Const: General: cooperative, healthy appearing, comfortable, no acute distress and well developed <Tangela Rehman APRN - Last Filed: 05/09/24 12:46> Orientation/consciousness: oriented to person, oriented to place, oriented to time and patient oriented x3 <Tangela Rehman APRN - Last Filed: 05/09/24 12:46> HENMT: Head: normal to inspection, normocephalic and atraumatic <Tangela Rehman APRN - Last Filed: 05/09/24 12:46> Mouth: Yes Normal oral and palatal mucosa present and Yes moist mucous membranes <Tangela Rehman APRN - Last Filed: 05/09/24 12:46> Eyes: General: appearance normal, both eyes and all related structures < Tangela Rehman APRN - Last Filed: 05/09/24 12:46> Conjunctivae: conjunctivae normal <Tangela Rehman APRN - Last Filed: 05/09/24 12:46> Sclera: sclerae normal <Tangela Rehman APRN - Last Filed: 05/09/24 12:46> Pupils: Equal, round and reactive pupils present <Tangela Rehman APRN - Last Filed: 05/09/24 12:46> Neck: Neck: normal visual inspection <Tangela Rehman APRN - Last Filed: 05/09/24 12:46> Chest: Chest palpation & inspection: normal inspection of the chest < Tangela Rehman APRN - Last Filed: 05/09/24 12:46> Resp: Effort & Inspection: normal respiratory effort and able to speak in complete sentences <Tangela Rehman APRN - Last Filed: 05/09/24 12:46> Auscultation: clear to auscultation bilaterally <Tangela McintoshleftyDELONTE robertN - Last Filed: 05/09/24 12:46> Cardio: Jugular venous distension: no JVD <Tangela Rehman APRN Last Filed: 05/09/24 12:46> Rate: regular rate <Tangela Rehman APRN - Last Filed: 05/09/24 12:46> Rhythm: regular rhythm <Tangela Rehman APRN Last Filed: 05/09/24 12:46> Heart sounds: S1 normal heart sound present and S2 normal heart sound present <Tangela Rehman APRN - Last Filed: 05/09/24 12:46> GI: Inspection: normal to inspection <Tangela Rehman APRScionhealth Last Filed: 05/09/24 12:46> GI Palp: Yes Soft to palpation and Yes No hepatosplenomegaly present <Tangela McintoshsherlyDELONTEN - Last Filed: 05/09/24 12:46> Auscultation: normal bowel sounds <Tangela Mcintoshsherly INDUSTRIAL RELATIONS WORKER - Last Filed: 05/09/24 12:46> Rectal Exam: deferred <Tangela Mcintoshsherly INDUSTRIAL RELATIONS WORKER - Last Filed: 05/09/24 12:46> Skin: General skin exam: normal color and no rashes or lesions noted < Tangela McintoshLIBBY dubois - Last Filed: 05/09/24 12:46> Neuro: General: oriented to person, oriented to place, oriented to time and patient oriented x3 <Tangela McintoshleftyyesicaDELONTEN - Last Filed: 05/09/24 12:46> Cranial nerves: Yes Equal, round and reactive pupils present <Tangela McintoshLIBBY dubois - Last Filed: 05/09/24 12:46> Speech: normal speech <Tangela McintoshDELONTE duboisN - Last Filed: 05/09/24 12:46> Extrem: General: normal to inspection and no clubbing, cyanosis or edema < Tangela AvalosMateo DaynaLIBBY dubois - Last Filed: 05/09/24 12:46> Psych: Appearance: grossly normal and well kempt <Tangela AvalosMateo Rehman APRN - Last Filed: 05/09/24 12:46> Affect: normal affect <Tangela McintoshLIBBY dubois - Last Filed: 05/09/24 12:46> Results Labs CBC & Chem 7: 05/09/24 07:21 05/09/24 07:21 <Tangela McintoshLIBBY dubois - Last Filed: 05/09/24 12:46> Labs: Short CBC 05/08/24 05/09/24 Range/Units 20:28 07:21 WBC 11.3 H 7.2 (4.5-10.0) K/mm3 Hgb 14.2 13.8 (12.0-15.0) g/dL Hct 41.4 42.1 (37.0-47.0) % Plt Count 264 248 (150-375) k/mm3 BMP 05/08/24 05/09/24 20:28 07:21 Sodium 139 138 Potassium 3.9 4.2 Chloride 103 106 Carbon Dioxide 26 23 BUN 21 H 13 D Creatinine 0.72 0.61 L Glucose 91 101 Calcium 9.7 8.7 Liver Function 05/08/24 05/09/24 Range/Units 20:28 07:21 Total Bilirubin 1.2 1.6 H (0.2-1.3) mg/dL AST 236 H 675 H (14-36) U/L ALT 111 H 571 H (6-35) U/L Alkaline Phosphatase 93 93 (38-126) U/L Albumin 4.2 3.8 (3.5-5.1) g/dL Urine 05/08/24 Range/Units 20:28 Urine Color Yellow (Yellow) Urine Appearance Turbid H (Clear) Urine pH 7.5 (5.0-9.0) Ur Specific [place] 1.016 (1.001-1.035) Urine Protein Negative (Negative) mg/dL Urine Glucose (UA) Negative (Negative) mg/dL <Tangela Rehman, INDUSTRIAL RELATIONS WORKER - Last Filed: 05/09/24 12:46>
--- NOTE | 2024-05-09 12:33 | P.CONGI_ITS ---
GI Consult Note Consult date/time: 05/09/24 12:33 Reason for consult: Acute pancreatitis HPI: ENDOSCOPY HISTORY: EGD: Per patient last EGD > 10 years ago was normal COLONOSCOPY: performed 05/26/[address] 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 The ulcerative chronic proctitis appeared at a depth of 10 cm from the anus. Multiple cold forceps biopsies were taken from the rectum for pathology. Multiple cold forceps biopsies were taken from the right colon for standard surveillance for IBD Bx results: Large intestine, random right colon Bx: No histological abnormality Large intestine, random rectal Bx: Chronic active colitis No granulomas or dysplasia LABS AND STOOL STUDIES: No recent labs available at today's visit IMAGING: No recent GI imaging available [facility] Past Medical History Medical History Essential (primary) hypertension Familial hypercholesterolemia Surgical History Surgical History delivery delivered Previous section Family History Family History Mother Hypertension Mother Hypertension Other Cancer of pancreas Diabetes mellitus Social History Social History Smoking packs per day: 0 Smoking cigarettes per day: 0.0 Smoking status: Never smoker Alcohol intake: current Drinks per week: 4 Alcohol use details: occasional Substance use: never Do You Feel Safe in your Home?: Yes Lack of Transportation: No Lack of Food: Never True Current Housing: I Have Housing Concerned About Future Housing: No Difficulty Paying Gas/Electric Bills: No Difficulty Paying for Meds: No Currently Unemployed: No Education: Decline to Answer Difficulty w/ Childcare or Family Care: No Living arrangements: with family Occupation/Education: occupation 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 Gender identity (if verbalized by the patient): Female Spiritual care concerns: No Meds Home Medications and Allergies Home Medications ?Medication ?Instructions ?Recorded ?Confirmed ?Type rosuvastatin 20 mg tablet See Rx Instructions .Route 03/27/23 05/09/24 Rx .COMPLEX #90 tabs valsartan 160 See Rx Instructions .Route 03/27/23 05/09/24 Rx mg-hydrochlorothiazide 12.5 mg .COMPLEX #90 tabs tablet Allergies Allergy/AdvReac Type Severity Reaction Status Date / Time No Known Allergies Allergy Verified 05/08/24 18:49 Vital Signs Vital Signs - 24 hr 05/08/24 18:49 05/08/24 19:23 05/08/24 21:08 Temperature 97.7 F 97.5 F L Pulse Rate 83 82 75 Respiratory Rate 18 20 17 Blood Pressure 122/83 116/83 120/88 Pulse Oximetry 98 96 98 Oxygen Delivery 05/09/24 00:00 05/09/24 01:13 05/09/24 02:22 Temperature Pulse Rate 77 65 Respiratory Rate 18 18 18 Blood Pressure 111/81 119/83 Pulse Oximetry 96 95 Oxygen Delivery 05/09/24 03:10 05/09/24 04:00 05/09/24 09:05 Temperature 97.7 F 96.9 F L Pulse Rate 63 57 L Respiratory Rate 18 16 Blood Pressure 117/88 106/63 Pulse Oximetry 95 97 Oxygen Delivery Room Air 05/09/24 12:20 Temperature 97.1 F L Pulse Rate 90 Respiratory Rate 16 Blood Pressure 134/73 Pulse Oximetry 100 Oxygen Delivery Results Labs 05/09/24 07:21 05/09/24 07:21 Labs: Short CBC 05/08/24 05/09/24 Range/Units 20:28 07:21 WBC 11.3 H 7.2 (4.5-10.0) K/mm3 Hgb 14.2 13.8 (12.0-15.0) g/dL Hct 41.4 42.1 (37.0-47.0) % Plt Count 264 248 (150-375) k/mm3 BMP 05/08/24 05/09/24 20:28 07:21 Sodium 139 138 Potassium 3.9 4.2 Chloride 103 106 Carbon Dioxide 26 23 BUN 21 H 13 D Creatinine 0.72 0.61 L Glucose 91 101 Calcium 9.7 8.7 Liver Function 05/08/24 05/09/24 Range/Units 20:28 07:21 Total Bilirubin 1.2 1.6 H (0.2-1.3) mg/dL AST 236 H 675 H (14-36) U/L ALT 111 H 571 H (6-35) U/L Alkaline Phosphatase 93 93 (38-126) U/L Albumin 4.2 3.8 (3.5-5.1) g/dL Urine 05/08/24 Range/Units 20:28 Urine Color Yellow (Yellow) Urine Appearance Turbid H (Clear) Urine pH 7.5 (5.0-9.0) Ur Specific [place] 1.016 (1.001-1.035) Urine Protein Negative (Negative) mg/dL Urine Glucose (UA) Negative (Negative) mg/dL
--- NOTE | 2024-05-09 12:57 | P.CONGS_ITS ---
Assessment and Plan Assessment and plan (1) Acute biliary pancreatitis: Code(s): K85.10 - Biliary acute pancreatitis without necrosis or infection Status: Acute Assessment and Plan: Will get MRCP to rule out choledocholithiasis, continue to trend labs and exam need interval cholecystectomy History of Present Illness Consult details Consult date: 05/09/24 Reason for consult: abdominal pain Requesting physician: Theo Zuleta MD Narrative: Patient is a 53-year-old female presenting to the emergency department complaining of severe epigastric abdominal. She describes the pain as constant and sharp with radiation to the back. The patient reports associated nausea, anorexia, bloating. Workup in emergency department, including imaging, significant for acute biliary pancreatitis. The patient endorses a strong family history of biliary disease. Review of Systems 2 Review of Systems: All systems reviewed & are unremarkable except as noted in HPI and below PMFSH Past Medical History Medical History Familial hypercholesterolemia Essential (primary) hypertension Surgical History Surgical History delivery delivered Previous section Family History Family History Mother Hypertension Mother Hypertension Other Cancer of pancreas Diabetes mellitus Social History Social History Smoking packs per day: 0 Smoking cigarettes per day: 0.0 Smoking status: Never smoker Alcohol intake: current Drinks per week: 4 Alcohol use details: occasional Substance use: never Do You Feel Safe in your Home?: Yes Lack of Transportation: No Lack of Food: Never True Current Housing: I Have Housing Concerned About Future Housing: No Difficulty Paying Gas/Electric Bills: No Difficulty Paying for Meds: No Currently Unemployed: No Education: Decline to Answer Difficulty w/ Childcare or Family Care: No Living arrangements: with family Occupation/Education: occupation 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 Gender identity (if verbalized by the patient): Female Spiritual care concerns: No Meds Home Medications and Allergies Home Medications ?Medication ?Instructions ?Recorded ?Confirmed ?Type rosuvastatin 20 mg tablet See Rx Instructions .Route 03/27/23 05/09/24 Rx .COMPLEX #90 tabs valsartan 160 See Rx Instructions .Route 03/27/23 05/09/24 Rx mg-hydrochlorothiazide 12.5 mg .COMPLEX #90 tabs tablet Allergies Allergy/AdvReac Type Severity Reaction Status Date / Time No Known Allergies Allergy Verified 05/08/24 18:49 Vital Signs Vital Signs - 24 hr 05/08/24 18:49 05/08/24 19:23 05/08/24 21:08 Temperature 36.5 C 36.4 C L Pulse Rate 83 82 75 Respiratory Rate 18 20 17 Blood Pressure 122/83 116/83 120/88 Pulse Oximetry 98 96 98 Oxygen Delivery 05/09/24 00:00 05/09/24 01:13 05/09/24 02:22 Temperature Pulse Rate 77 65 Respiratory Rate 18 18 18 Blood Pressure 111/81 119/83 Pulse Oximetry 96 95 Oxygen Delivery 05/09/24 03:10 05/09/24 04:00 05/09/24 09:05 Temperature 36.5 C 36.1 C L Pulse Rate 63 57 L Respiratory Rate 18 16 Blood Pressure 117/88 106/63 Pulse Oximetry 95 97 Oxygen Delivery Room Air 05/09/24 12:20 Temperature 36.2 C L Pulse Rate 90 Respiratory Rate 16 Blood Pressure 134/73 Pulse Oximetry 100 Oxygen Delivery Exam 2 Const: General: cooperative, no acute distress and uncomfortable HENMT: Head: normal to inspection, normocephalic and atraumatic Eyes: General: appearance normal, both eyes and all related structures Neck: Neck: normal visual inspection, full ROM and no lymphadenopathy Resp: Effort & Inspection: normal respiratory effort Auscultation: clear to auscultation bilaterally Cardio: Rate: regular rate Rhythm: regular rhythm GI: Inspection: normal to inspection and distended GI Palp: Yes abdominal tenderness, Yes Soft to palpation, Yes Tenderness to palpation present (GI), No Guarding due to palpation present (GI) and No Rigid due to palpation Skin: General skin exam: normal color and no rashes or lesions noted Neuro: General: patient oriented x3 and CN's II-XI intact bilaterally Extrem: General: normal to inspection and full ROM Results Labs 05/09/24 07:21 05/09/24 07:21 Labs: Abnormal lab results 05/08/24 05/09/24 Range/Units 20:28 07:21 WBC 11.3 H (4.5-10.0) K/mm3 Neut % (Auto) 76.0 H 75.4 H (45.5-73.1) % Lymph % (Auto) 12.9 L 16.5 L (18.3-44.2) % [place] % (Auto) 9.9 H (2.6-8.5) % [place] # (Auto) 1.1 H (0.1-0.6) K/mm3 Abs Immat Gran (auto) 0.04 H (0.00-0.031) K/mm3 Absolute Neuts (auto) 8.6 H (1.3-6.7) K/mm3 BUN 21 H (7-17) mg/dL Creatinine 0.61 L (0.7-1.0) mg/dL Total Bilirubin 1.6 H (0.2-1.3) mg/dL AST 236 H 675 H (14-36) U/L ALT 111 H 571 H (6-35) U/L Lipase 1363 H (23-300) U/L Urine Appearance Turbid H (Clear) Diabetes panel 05/08/24 05/09/24 Range/Units 20:28 07:21 Sodium 139 138 (137-145) mmol/L Potassium 3.9 4.2 (3.4-5.0) mmol/L Chloride 103 106 (98-107) mmol/L Carbon Dioxide 26 23 (22-30) mmol/L BUN 21 H 13 D (7-17) mg/dL Creatinine 0.72 0.61 L (0.7-1.0) mg/dL Glucose 91 101 (65-110) mg/dL Calcium 9.7 8.7 (8.4-10.2) mg/dL AST 236 H 675 H (14-36) U/L ALT 111 H 571 H (6-35) U/L Alkaline Phosphatase 93 93 (38-126) U/L Total Protein 7.0 7.0 (6.3-8.2) g/dL Albumin 4.2 3.8 (3.5-5.1) g/dL Calcium panel 05/08/24 05/09/24 Range/Units 20:28 07:21 Calcium 9.7 8.7 (8.4-10.2) mg/dL Albumin 4.2 3.8 (3.5-5.1) g/dL Pituitary panel 05/08/24 05/09/24 Range/Units 20:28 07:21 Sodium 139 138 (137-145) mmol/L Potassium 3.9 4.2 (3.4-5.0) mmol/L Chloride 103 106 (98-107) mmol/L Carbon Dioxide 26 23 (22-30) mmol/L BUN 21 H 13 D (7-17) mg/dL Creatinine 0.72 0.61 L (0.7-1.0) mg/dL Glucose 91 101 (65-110) mg/dL Calcium 9.7 8.7 (8.4-10.2) mg/dL Adrenal panel 05/08/24 05/09/24 Range/Units 20:28 07:21 Sodium 139 138 (137-145) mmol/L Potassium 3.9 4.2 (3.4-5.0) mmol/L Chloride 103 106 (98-107) mmol/L Carbon Dioxide 26 23 (22-30) mmol/L BUN 21 H 13 D (7-17) mg/dL Creatinine 0.72 0.61 L (0.7-1.0) mg/dL Glucose 91 101 (65-110) mg/dL Calcium 9.7 8.7 (8.4-10.2) mg/dL Total Bilirubin 1.2 1.6 H (0.2-1.3) mg/dL AST 236 H 675 H (14-36) U/L ALT 111 H 571 H (6-35) U/L Alkaline Phosphatase 93 93 (38-126) U/L Total Protein 7.0 7.0 (6.3-8.2) g/dL Albumin 4.2 3.8 (3.5-5.1) g/dL All other labs normal. Imaging Abdomen CT scan report/results: report reviewed and image reviewed Abdominal ultrasound report/results: report reviewed
[2024-05-09] MEDS: DOCUSATE SODIUM 100 MG CAPSULE PO (20:11)
[2024-05-09] MEDS: HEPARIN SODIUM 5,000 UNITS/ML VIAL 5000 UNITS SUB-Q (20:13)
[2024-05-09 21:02] LABS: Influenza A QL RT-PCR Negative (Negative); Influenza B QL RT-PCR Negative (Negative); RSV RNA, RT-PCR Negative (Negative); SARS-CoV-2 RNA PCR Negative (Negative)
[2024-05-10] VITALS (7 sets, daily range): BP systolic 107–123; BP diastolic 35–89; PULSE 61–69; RESP 18–20; TEMP 36.3–36.9; O2SAT 97–99
[2024-05-10] MEDS: PIPERACILLN/TAZ 3.375GM/NS50ML 3.375 GM/50 ML BAG IVPB ×4 (04:25→23:00)
[2024-05-10 06:40] LABS: Eosinophils Absolute Auto 0.1 K/mm3 (0-0.3); Eosinophils Percent Auto 3.6 % (0-4.4); Hematocrit 37.8 % (37.0-47.0); Hemoglobin 12.4 g/dL (12.0-15.0); Immature Granulocyte Absolute 0.01 K/mm3 (0.00-0.031); Immature Granulocyte Percent A 0.3 % (0-0.5); Lymphocytes Percent Auto 30.7 % (18.3-44.2); Mean Corpuscular HGB Conc 32.8 g/dl (32-36); Mean Corpuscular Hemoglobin 31.2 pg (26-34); Mean Platelet Volume 9.6 fl (7.4-10.4); Monocytes Absolute Auto 0.4 K/mm3 (0.1-0.6); Monocytes Percent Auto 9.2 % (2.6-8.5); Neutrophils Absolute Auto 2.2 K/mm3 (1.3-6.7); Neutrophils Percent Auto 55.2 % (45.5-73.1); Platelet Count Result 201 k/mm3 (150-375); Red Blood Count 3.98 M/mm3 (4.2-5.4); Red Cell Distribution Width 13.3 % (11.5-14.5); White Blood Count 3.9 K/mm3 (4.5-10.0)
[2024-05-10 06:50] LABS: Alanine Aminotransferase 519 U/L (6-35); Albumin Level 3.3 g/dL (3.5-5.1); Alkaline Phosphatase 92 U/L (38-126); Anion Gap 5 mmol/L (4-12); Aspartate Amino Transferase 282 U/L (14-36); Bilirubin,Total 1.3 mg/dL (0.2-1.3); Blood Urea Nitrogen 10 mg/dL (7-17); Calcium 8.4 mg/dL (8.4-10.2); Carbon Dioxide 24 mmol/L (22-30); Chloride 109 mmol/L (98-107); Estimated CRCL calculation 89 ml/min; Estimated Glomerular Filt Rate > 60; Glucose 90 mg/dL (65-110); Potassium 4.1 mmol/L (3.4-5.0); Sodium 138 mmol/L (137-145)
--- NOTE | 2024-05-10 08:27 | PM.IMPN ---
Progress Note: A&P Assessment and Plan (1) Acute cholecystitis: Code(s): K81.0 - Acute cholecystitis Status: Acute Assessment and Plan: - Biliary labs: tot bili 1.6, AST 675, ALT 571, alk phos 93 on admission, downtrending - CT abdomen/pelvis: Gallbladder wall thickening. Correlate for possible acute cholecystitis. - RUQ US Evaluation of the pancreas is limited by overlying bowel gas. Cholelithiasis. Gallbladder wall thickening which may be secondary to underdistention. - MRCP: 1. Cholelithiasis with small amount of pericholecystic fluid suspicious for acute cholecystitis. No choledocholithiasis or intra/extra hepatic biliary ductal dilation. 2. Likely benign simple appearing thin-walled cystic structure along the serosal surface of the proximal descending colon without evident solid nodular component which could represent a peritoneal inclusion cyst, enteric duplication cyst, lymphangioma/lymphatic malformation or diverticulum. - IV fluid resuscitation for cocurrent pancreatitis - Start Zosyn 3.375 mg every 6 hours - Analgesics - Diet: clear liquid - Monitor vital signs, I and O's, check stool output, neuro status and patient is a fall risk - Monitor serum electrolytes and CBC - Consult general surgery, appreciate assistance and recommendation - Consult general GI, appreciate assistance and recommendation (2) Acute pancreatitis: Qualifiers: Acute pancreatitis complication: no infection or necrosis Pancreatitis type: biliary Qualified Code(s): K85.10 - Biliary acute pancreatitis without necrosis or infection Code(s): K85.90 - Acute pancreatitis without necrosis or infection, unspecified Status: Acute Assessment and Plan: - Lipase 1363 on admission, returned to WNL - CT abdomen/pelvis: Gallbladder wall thickening. Correlate for possible acute cholecystitis. Consider ultrasound and/or HIDA scan for further evaluation. - IV NS 125 ml/hr - Analgesics - Antiemetics (3) Essential (primary) hypertension: Code(s): I10 - Essential (primary) hypertension Status: Acute Assessment and Plan: Chronic - patient is not on antihypertensives. Valsartan-HCTZ last filled in 06/2023. - blood pressures remain stable, continue to monitor (4) Influenza: Code(s): J11.1 - Influenza due to unidentified influenza virus with other respiratory manifestations Status: Acute Assessment and Plan: Asymptomatic. Viral panel: Flu A Time Spent With Patient Time with patient: 25 - 35 minutes Subjective Date/time seen: 05/10/24 08:27 Interval history: 53-year-old female with a past medical history significant for obesity, dyslipidemia, hypertension who presents to the hospital for epigastric pain and nausea. Patient is pleasant lying comfortably in bed. She states that her pain is well controlled on the current regimen and she denies any nausea/vomiting. She has no other complaints denies chest pain, palpitations, and shortness of breath. Awaiting further recommendations from GI and surgery. Review of Systems Review of Systems: All systems reviewed & are unremarkable except as noted in HPI and below Exam Narrative: AF HR 65 RR 18 Spo2 97 BP 121/82 General: female in no acute respiratory distress who is nontoxic appearing, lying semi recumbent in bed. HEENT: Normocephalic. Atraumatic. Extraocular movement intact. Sclera clear and anicteric. No facial asymmetry. Chest: Lungs are clear to auscultation bilaterally. No wheezes or crackles. CV: Heart was regular rate and rhythm. S1-S2. No murmurs, gallops, or rubs. Abd: Abdomen was soft. Tender epigastric and RUQ, improved. Nondistended. Positive bowel sounds. Neuro: Patient is alert. Speech is clear. Objective Data Vital Signs Vital Signs: Vital Signs - 24 hr 05/09/24 09:05 05/09/24 12:20 05/09/24 16:40 Temperature 96.9 F L 97.1 F L 97.8 F Pulse Rate 57 L 90 57 L Respiratory Rate 16 16 16 Blood Pressure 106/63 134/73 103/72 Pulse Oximetry 97 100 98 Oxygen Delivery 05/09/24 20:13 05/09/24 21:15 05/10/24 01:40 Temperature 97.7 F 97.5 F L Pulse Rate 61 69 Respiratory Rate 20 18 Blood Pressure 107/78 107/69 Pulse Oximetry 99 97 Oxygen Delivery Room Air 05/10/24 05:15 Temperature 97.6 F Pulse Rate 65 Respiratory Rate 20 Blood Pressure 112/68 Pulse Oximetry 98 Oxygen Delivery Intake/Output Intake/Output: Intake & Output 05/07/24 05/08/24 05/09/24 05/10/24 23:59 23:59 23:59 23:59 Intake Total 2260.5 287 Balance 2260.5 287 Meds/Results Medications: Active Medications Generic Name Dose Route Start Last Admin Trade Name Freq PRN Reason Stop Dose Admin Acetaminophen 650 mg 05/09/24 01:16 Acetaminophen 325 Mg Tablet PO Q4H PRN Mild Pain (1-3) or Fever Bisacodyl 10 mg 05/09/24 01:16 Bisacodyl 10 Mg Suppository RECTAL ONCE PRN Constipation Docusate Sodium 100 mg 05/09/24 09:00 05/09/24 20:11 Docusate Sodium 100 Mg Capsule PO 100 mg BID FREDDY Administration Heparin Sodium (Porcine) 5,000 units 05/09/24 09:00 05/09/24 20:13 Heparin Sodium 5,000 Units/Ml Vial SUB-Q 5,000 units Q12HR FREDDY Administration Dextrose/Sodium Chloride 1,000 mls @ 125 mls/hr 05/09/24 01:20 05/09/24 23:54 Dextrose 5% Sodium Chloride 0.9% IV CONT 125 mls/hr .Q8H FREDDY Administration Piperacillin/Tazobactam/Dextrose 3.375 gm in 50 mls @ 100 mls/hr 05/09/24 05:00 05/10/24 04:55 Zosyn 3.375 Gm/Ns 50 Ml IVPB Infused Q6H FREDDY Infusion Melatonin 5 mg 05/09/24 01:16 Melatonin 5 Mg Tablet PO HS PRN Insomnia Ondansetron HCl 4 mg 05/09/24 01:16 Ondansetron Inj 4 Mg/2 Ml Vial IV PUSH Q6H PRN Nausea And Vomiting Prochlorperazine Edisylate 10 mg 05/09/24 01:16 Prochlorperazine Edisylate 10 Mg/2 Ml Vial IV PUSH Q6H PRN Nausea And Vomiting Radiology Results: ITS Impressions Abdomen/Pelvis CT 05/09/24 06:22 Impression: Gallbladder wall thickening. Correlate for possible acute cholecystitis. Consider ultrasound and/or HIDA scan for further evaluation. Abdomen Ultrasound 05/09/24 09:02 IMPRESSION: Evaluation of the pancreas is limited by overlying bowel gas. Cholelithiasis. Gallbladder wall thickening which may be secondary to underdistention. Labs Labs: Laboratory Results - last 24 hr 05/09/24 05/10/24 20:19 06:19 WBC 3.9 L RBC 3.98 L Hgb 12.4 Hct 37.8 MCV 95.0 MCH 31.2 MCHC 32.8 RDW 13.3 Plt Count 201 MPV 9.6 Immature Gran % (Auto) 0.3 Neut % (Auto) 55.2 Lymph % (Auto) 30.7 [place] % (Auto) 9.2 H Eos % (Auto) 3.6 Baso % (Auto) 1.0 Lymph # (Auto) 1.20 [place] # (Auto) 0.4 Eos # (Auto) 0.1 Baso # (Auto) 0.0 Abs Immat Gran (auto) 0.01 Absolute Neuts (auto) 2.2 Absolute Nucleated RBC 0.000 Nucleated RBC % 0.0 Sodium 138 Potassium 4.1 Chloride 109 H Carbon Dioxide 24 Anion Gap 5 BUN 10 Creatinine 0.64 L Estim Creat Clear Calc 89 Estimated GFR > 60 Glucose 90 Calcium 8.4 Total Bilirubin 1.3 AST 282 H ALT 519 H Alkaline Phosphatase 92 Total Protein 6.0 L Albumin 3.3 L Influenza A (RT-PCR) Negative Influenza B (RT-PCR) Negative RSV (RT-PCR) Negative SARS-CoV-2 RNA (RT-PCR) Negative Quality VTE Prophylaxis VTE prophylaxis: pharmacologic ordered
[2024-05-10 08:53] LABS: Lipase 73 U/L (23-300)
[2024-05-10] MEDS: DEXTROSE 5%/0.9% SOD CHL 1,000 ML 125 ML IV CONT ×2 (09:01→17:11)
[2024-05-10] MEDS: DOCUSATE SODIUM 100 MG CAPSULE PO ×2 (09:01→17:09)
[2024-05-10] MEDS: HEPARIN SODIUM 5,000 UNITS/ML VIAL 5000 UNITS SUB-Q ×2 (09:01→20:45)
--- NOTE | 2024-05-10 15:01 | PM.PNGS ---
Progress Note: A&P Assessment and Plan (1) Acute biliary pancreatitis: Code(s): K85.10 - Biliary acute pancreatitis without necrosis or infection Status: Acute Assessment and Plan: resolving, exam completely benign, will set up for interval cholecystectomy tomorrow, okay to have low fat diet tonight Subjective Subjective Date/Time Seen: 05/10/24 15:01 Interval history: feels good, amanda clears, pain much improved Review of Systems Review of Systems: All systems reviewed & are unremarkable except as noted in HPI and below Exam Const: General: cooperative, comfortable and no acute distress Resp: Auscultation: clear to auscultation bilaterally Cardio: Rate: regular rate Rhythm: regular rhythm GI: Inspection: normal to inspection and non-distended GI Palp: Yes abdominal tenderness and Yes Soft to palpation Objective Data Vital Signs Vital Signs: Vital Signs - 24 hr 05/09/24 16:40 05/09/24 20:13 05/09/24 21:15 Temperature 36.6 C 36.5 C Pulse Rate 57 L 61 Respiratory Rate 16 20 Blood Pressure 103/72 107/78 Pulse Oximetry 98 99 Oxygen Delivery Room Air 05/10/24 01:40 05/10/24 05:15 05/10/24 08:00 Temperature 36.4 C L 36.4 C Pulse Rate 69 65 Respiratory Rate 18 20 Blood Pressure 107/69 112/68 Pulse Oximetry 97 98 Oxygen Delivery Room Air 05/10/24 08:00 05/10/24 12:00 Temperature 36.5 C 36.6 C Pulse Rate 61 65 Respiratory Rate 20 18 Blood Pressure 117/89 121/82 Pulse Oximetry 99 97 Oxygen Delivery Intake/Output Intake/Output: Intake & Output 05/07/24 05/08/24 05/09/24 05/10/24 23:59 23:59 23:59 23:59 Intake Total 2260.5 1935 Balance 2260.5 1935 Meds/Results Medications: Active Medications Generic Name Dose Route Start Last Admin Trade Name Freq PRN Reason Stop Dose Admin Acetaminophen 650 mg 05/09/24 01:16 Acetaminophen 325 Mg Tablet PO Q4H PRN Mild Pain (1-3) or Fever Bisacodyl 10 mg 05/09/24 01:16 Bisacodyl 10 Mg Suppository RECTAL ONCE PRN Constipation Docusate Sodium 100 mg 05/09/24 09:00 05/10/24 09:01 Docusate Sodium 100 Mg Capsule PO 100 mg BID FREDDY Administration Fentanyl Citrate 25 mcg 05/10/24 14:48 Fentanyl Citrate Inj (*Crx) 100 Mcg/2 Ml Vial IV PUSH Q2M PRN Pain Heparin Sodium (Porcine) 5,000 units 05/09/24 09:00 05/10/24 09:01 Heparin Sodium 5,000 Units/Ml Vial SUB-Q 5,000 units Q12HR FREDDY Administration Dextrose/Sodium Chloride 1,000 mls @ 125 mls/hr 05/09/24 01:20 05/10/24 09:01 Dextrose 5% Sodium Chloride 0.9% IV CONT 125 mls/hr .Q8H FREDDY Administration Piperacillin/Tazobactam/Dextrose 3.375 gm in 50 mls @ 100 mls/hr 05/09/24 05:00 05/10/24 10:56 Zosyn 3.375 Gm/Ns 50 Ml IVPB Infused Q6H FREDDY Infusion Lactated Ringer's 1,000 mls @ 30 mls/hr 05/10/24 14:50 Lr - Lactated Ringers Iv IV CONT .Q24H FREDDY Lactated Ringer's 1,000 mls @ 30 mls/hr 05/10/24 14:50 Lr - Lactated Ringers Iv IV CONT .Q24H FREDDY Melatonin 5 mg 05/09/24 01:16 Melatonin 5 Mg Tablet PO HS PRN Insomnia Ondansetron HCl 4 mg 05/09/24 01:16 Ondansetron Inj 4 Mg/2 Ml Vial IV PUSH Q6H PRN Nausea And Vomiting Ondansetron HCl 4 mg 05/10/24 14:48 Ondansetron Inj 4 Mg/2 Ml Vial IV PUSH ONCE PRN Nausea Oxycodone HCl 5 mg 05/10/24 14:48 Oxycodone Hcl (*Crx) 5 Mg Tab Ir PO ONCE PRN Pain Prochlorperazine Edisylate 10 mg 05/09/24 01:16 Prochlorperazine Edisylate 10 Mg/2 Ml Vial IV PUSH Q6H PRN Nausea And Vomiting Radiology Results: ITS Impressions Abdomen/Pelvis CT 05/09/24 06:22 Impression: Gallbladder wall thickening. Correlate for possible acute cholecystitis. Consider ultrasound and/or HIDA scan for further evaluation. Abdomen Ultrasound 05/09/24 09:02 IMPRESSION: Evaluation of the pancreas is limited by overlying bowel gas. Cholelithiasis. Gallbladder wall thickening which may be secondary to underdistention. MRCP 05/10/24 08:28 IMPRESSION: 1. Cholelithiasis with small amount of pericholecystic fluid suspicious for acute cholecystitis. No choledocholithiasis or intra/extra hepatic biliary ductal dilation. 2. Likely benign simple appearing thin-walled cystic structure along the serosal surface of the proximal descending colon without evident solid nodular component which could represent a peritoneal inclusion cyst, enteric duplication cyst, lymphangioma/lymphatic malformation or diverticulum. Labs Labs: Laboratory Results - last 24 hr 05/09/24 05/10/24 05/10/24 20:19 06:17 06:19 WBC 3.9 L RBC 3.98 L Hgb 12.4 Hct 37.8 MCV 95.0 MCH 31.2 MCHC 32.8 RDW 13.3 Plt Count 201 MPV 9.6 Immature Gran % (Auto) 0.3 Neut % (Auto) 55.2 Lymph % (Auto) 30.7 [place] % (Auto) 9.2 H Eos % (Auto) 3.6 Baso % (Auto) 1.0 Lymph # (Auto) 1.20 [place] # (Auto) 0.4 Eos # (Auto) 0.1 Baso # (Auto) 0.0 Abs Immat Gran (auto) 0.01 Absolute Neuts (auto) 2.2 Absolute Nucleated RBC 0.000 Nucleated RBC % 0.0 Sodium 138 Potassium 4.1 Chloride 109 H Carbon Dioxide 24 Anion Gap 5 BUN 10 Creatinine 0.64 L Estim Creat Clear Calc 89 Estimated GFR > 60 Glucose 90 Calcium 8.4 Total Bilirubin 1.3 AST 282 H ALT 519 H Alkaline Phosphatase 92 Total Protein 6.0 L Albumin 3.3 L Lipase 73 Influenza A (RT-PCR) Negative Influenza B (RT-PCR) Negative RSV (RT-PCR) Negative SARS-CoV-2 RNA (RT-PCR) Negative
--- NOTE | 2024-05-10 15:07 | WPDGIPROGNO ---
Progress Note: A&P Assessment and Plan (1) Acute pancreatitis: Qualifiers: Acute pancreatitis complication: no infection or necrosis Pancreatitis type: biliary Qualified Code(s): K85.10 - Biliary acute pancreatitis without necrosis or infection Code(s): K85.90 - Acute pancreatitis without necrosis or infection, unspecified Status: Acute Assessment and Plan: clinically better MRCP reviewed, no stone in bile duct, c/w cholecystitis plan for lap jhon no need of ercp will follow as needed (2) Acute cholecystitis: Code(s): K81.0 - Acute cholecystitis Status: Acute Assessment and Plan: surgery on board (3) Elevated LFTs: Code(s): R79.89 - Other specified abnormal findings of blood chemistry Status: Acute Assessment and Plan: trending down from gs pancreatitis (4) Upper abdominal pain: Code(s): R10.10 - Upper abdominal pain, unspecified Status: Acute Subjective Date/time seen: 05/10/24 15:07 Interval history: pain almost gone and doing much better Review of Systems Review of Systems: All systems reviewed & are unremarkable except as noted in HPI and below Exam Const: General: comfortable and no acute distress HENMT: Face/Nose/Sinus: Normal nares present Eyes: General: appearance normal, both eyes and all related structures Neck: Neck: supple Resp: Auscultation: clear to auscultation bilaterally Cardio: Rate: regular rate Rhythm: regular rhythm GI: Inspection: non-distended GI Palp: Yes Soft to palpation and No Tenderness to palpation present (GI) Auscultation: normal bowel sounds Skin: General skin exam: normal color Neuro: Speech: normal speech Motor exam (neuro): 5/5 motor strength present throughout Extrem: General: normal to inspection Psych: Mental Status: mental status grossly normal Objective Data Vital Signs Vital Signs: Vital Signs - 24 hr 05/09/24 16:40 05/09/24 20:13 05/09/24 21:15 Temperature 97.8 F 97.7 F Pulse Rate 57 L 61 Respiratory Rate 16 20 Blood Pressure 103/72 107/78 Pulse Oximetry 98 99 Oxygen Delivery Room Air 05/10/24 01:40 05/10/24 05:15 05/10/24 08:00 Temperature 97.5 F L 97.6 F Pulse Rate 69 65 Respiratory Rate 18 20 Blood Pressure 107/69 112/68 Pulse Oximetry 97 98 Oxygen Delivery Room Air 05/10/24 08:00 05/10/24 12:00 Temperature 97.7 F 97.8 F Pulse Rate 61 65 Respiratory Rate 20 18 Blood Pressure 117/89 121/82 Pulse Oximetry 99 97 Oxygen Delivery Intake/Output Intake/Output: Intake & Output 05/07/24 05/08/24 05/09/24 05/10/24 23:59 23:59 23:59 23:59 Intake Total 2260.5 1935 Balance 2260.5 1935 Meds/Results Medications: Active Medications Generic Name Dose Route Start Last Admin Trade Name Freq PRN Reason Stop Dose Admin Acetaminophen 650 mg 05/09/24 01:16 Acetaminophen 325 Mg Tablet PO Q4H PRN Mild Pain (1-3) or Fever Bisacodyl 10 mg 05/09/24 01:16 Bisacodyl 10 Mg Suppository RECTAL ONCE PRN Constipation Docusate Sodium 100 mg 05/09/24 09:00 05/10/24 09:01 Docusate Sodium 100 Mg Capsule PO 100 mg BID FREDDY Administration Fentanyl Citrate 25 mcg 05/10/24 14:48 Fentanyl Citrate Inj (*Crx) 100 Mcg/2 Ml Vial IV PUSH Q2M PRN Pain Heparin Sodium (Porcine) 5,000 units 05/09/24 09:00 05/10/24 09:01 Heparin Sodium 5,000 Units/Ml Vial SUB-Q 5,000 units Q12HR FREDDY Administration Dextrose/Sodium Chloride 1,000 mls @ 125 mls/hr 05/09/24 01:20 05/10/24 09:01 Dextrose 5% Sodium Chloride 0.9% IV CONT 125 mls/hr .Q8H FREDDY Administration Piperacillin/Tazobactam/Dextrose 3.375 gm in 50 mls @ 100 mls/hr 05/09/24 05:00 05/10/24 10:56 Zosyn 3.375 Gm/Ns 50 Ml IVPB Infused Q6H FREDDY Infusion Lactated Ringer's 1,000 mls @ 30 mls/hr 05/10/24 14:50 Lr - Lactated Ringers Iv IV CONT .Q24H FREDDY Lactated Ringer's 1,000 mls @ 30 mls/hr 05/10/24 14:50 Lr - Lactated Ringers Iv IV CONT .Q24H FREDDY Melatonin 5 mg 05/09/24 01:16 Melatonin 5 Mg Tablet PO HS PRN Insomnia Ondansetron HCl 4 mg 05/09/24 01:16 Ondansetron Inj 4 Mg/2 Ml Vial IV PUSH Q6H PRN Nausea And Vomiting Ondansetron HCl 4 mg 05/10/24 14:48 Ondansetron Inj 4 Mg/2 Ml Vial IV PUSH ONCE PRN Nausea Oxycodone HCl 5 mg 05/10/24 14:48 Oxycodone Hcl (*Crx) 5 Mg Tab Ir PO ONCE PRN Pain Prochlorperazine Edisylate 10 mg 05/09/24 01:16 Prochlorperazine Edisylate 10 Mg/2 Ml Vial IV PUSH Q6H PRN Nausea And Vomiting Radiology Results: ITS Impressions Abdomen/Pelvis CT 05/09/24 06:22 Impression: Gallbladder wall thickening. Correlate for possible acute cholecystitis. Consider ultrasound and/or HIDA scan for further evaluation. Abdomen Ultrasound 05/09/24 09:02 IMPRESSION: Evaluation of the pancreas is limited by overlying bowel gas. Cholelithiasis. Gallbladder wall thickening which may be secondary to underdistention. MRCP 05/10/24 08:28 IMPRESSION: 1. Cholelithiasis with small amount of pericholecystic fluid suspicious for acute cholecystitis. No choledocholithiasis or intra/extra hepatic biliary ductal dilation. 2. Likely benign simple appearing thin-walled cystic structure along the serosal surface of the proximal descending colon without evident solid nodular component which could represent a peritoneal inclusion cyst, enteric duplication cyst, lymphangioma/lymphatic malformation or diverticulum. Labs Labs: Laboratory Results - last 24 hr 05/09/24 05/10/24 05/10/24 20:19 06:17 06:19 WBC 3.9 L RBC 3.98 L Hgb 12.4 Hct 37.8 MCV 95.0 MCH 31.2 MCHC 32.8 RDW 13.3 Plt Count 201 MPV 9.6 Immature Gran % (Auto) 0.3 Neut % (Auto) 55.2 Lymph % (Auto) 30.7 [place] % (Auto) 9.2 H Eos % (Auto) 3.6 Baso % (Auto) 1.0 Lymph # (Auto) 1.20 [place] # (Auto) 0.4 Eos # (Auto) 0.1 Baso # (Auto) 0.0 Abs Immat Gran (auto) 0.01 Absolute Neuts (auto) 2.2 Absolute Nucleated RBC 0.000 Nucleated RBC % 0.0 Sodium 138 Potassium 4.1 Chloride 109 H Carbon Dioxide 24 Anion Gap 5 BUN 10 Creatinine 0.64 L Estim Creat Clear Calc 89 Estimated GFR > 60 Glucose 90 Calcium 8.4 Total Bilirubin 1.3 AST 282 H ALT 519 H Alkaline Phosphatase 92 Total Protein 6.0 L Albumin 3.3 L Lipase 73 Influenza A (RT-PCR) Negative Influenza B (RT-PCR) Negative RSV (RT-PCR) Negative SARS-CoV-2 RNA (RT-PCR) Negative
[2024-05-11] VITALS (11 sets, daily range): BP systolic 107–134; BP diastolic 76–92; PULSE 62–79; RESP 12–20; TEMP 36.2–37.1; O2SAT 96–100
[2024-05-11] MEDS: DEXTROSE 5%/0.9% SOD CHL 1,000 ML 125 ML IV CONT (04:07)
[2024-05-11] MEDS: PIPERACILLN/TAZ 3.375GM/NS50ML 3.375 GM/50 ML BAG IVPB ×2 (04:07→10:22)
[2024-05-11 07:08] LABS: Basophils Absolute Auto 0.1 K/mm3 (0.0-0.1); Basophils Percent Auto 1.6 % (0.2-1.2); Eosinophils Absolute Auto 0.2 K/mm3 (0-0.3); Eosinophils Percent Auto 3.4 % (0-4.4); Hematocrit 38.1 % (37.0-47.0); Hemoglobin 12.6 g/dL (12.0-15.0); Lymphocytes Absolute Auto 1.59 K/mm3 (0.9-3.2); Lymphocytes Percent Auto 35.6 % (18.3-44.2); Mean Corpuscular HGB Conc 33.1 g/dl (32-36); Mean Corpuscular Hemoglobin 31.3 pg (26-34); Mean Corpuscular Volume 94.5 fl (80-100); Mean Platelet Volume 9.6 fl (7.4-10.4); Monocytes Absolute Auto 0.4 K/mm3 (0.1-0.6); Monocytes Percent Auto 9.4 % (2.6-8.5); Neutrophils Absolute Auto 2.2 K/mm3 (1.3-6.7); Platelet Count Result 220 k/mm3 (150-375); Red Blood Count 4.03 M/mm3 (4.2-5.4); Red Cell Distribution Width 13.2 % (11.5-14.5); White Blood Count 4.5 K/mm3 (4.5-10.0)
[2024-05-11 07:32] LABS: Alanine Aminotransferase 343 U/L (6-35); Albumin Level 3.4 g/dL (3.5-5.1); Alkaline Phosphatase 86 U/L (38-126); Anion Gap 10 mmol/L (4-12); Aspartate Amino Transferase 113 U/L (14-36); Bilirubin,Total 0.9 mg/dL (0.2-1.3); Blood Urea Nitrogen 4 mg/dL (7-17); Calcium 8.6 mg/dL (8.4-10.2); Carbon Dioxide 19 mmol/L (22-30); Chloride 108 mmol/L (98-107); Estimated CRCL calculation 97 ml/min; Estimated Glomerular Filt Rate > 60; Glucose 95 mg/dL (65-110); Lipase 54 U/L (23-300); Potassium 3.6 mmol/L (3.4-5.0); Sodium 137 mmol/L (137-145)
--- NOTE | 2024-05-11 10:14 | WPDHPUPDATE1 ---
History and Physical Update Update Date/Time: 05/11/24 10:14 History and Physical has been reviewed, including an updated exam of the patient. There are NO changes in the patient's condition. Risks, benefits, and alternatives have been discussed and questions answered. Patient agrees to proceed with procedure.
[2024-05-11] MEDS: LACTATED RINGERS 1,000 ML 30 ML IV CONT (12:06)
--- NOTE | 2024-05-11 12:15 | P.PNAN_ITS ---
Anes - Initial Pre Proc Eval Procedure: Operation Date: 05/11/24 12:30 Proposed Procedures p Laparoscopic Cholecystectomy - Lis Barrios MD Date/Time: 05/11/24 12:15 Surgeon: Theo Zuleta MD Pre Op Diagnosis: Acute cholecystitis, pancreatitis Patient Data Age: 53 Gender: F Height: 1.68 m Weight: 77.1 kg Last Vital Signs Temp 98.8 F 05/11/24 12:05 Pulse 68 05/11/24 12:05 Resp 16 05/11/24 12:05 BP 134/85 05/11/24 12:05 Pulse Ox 100 05/11/24 12:05 O2 Del Method Room Air 05/11/24 12:05 Allergies Allergy/AdvReac Type Severity Reaction Status Date / Time No Known Allergies Allergy Verified 05/11/24 12:03 Home Medications ?Medication ?Instructions ?Recorded ?Confirmed ?Type rosuvastatin 20 mg tablet See Rx Instructions .Route 03/27/23 05/09/24 Rx .COMPLEX #90 tabs valsartan 160 See Rx Instructions .Route 03/27/23 05/09/24 Rx mg-hydrochlorothiazide 12.5 mg .COMPLEX #90 tabs tablet Laboratory Tests 05/11/24 06:43 WBC 4.5 K/mm3 (4.5-10.0) RBC 4.03 L M/mm3 (4.2-5.4) Hgb 12.6 g/dL (12.0-15.0) Hct 38.1 % (37.0-47.0) MCV 94.5 fl (80-100) MCH 31.3 pg (26-34) MCHC 33.1 g/dl (32-36) RDW 13.2 % (11.5-14.5) Plt Count 220 k/mm3 (150-375) MPV 9.6 fl (7.4-10.4) Immature Gran % (Auto) 0.0 % (0-0.5) Neut % (Auto) 50.0 % (45.5-73.1) Lymph % (Auto) 35.6 % (18.3-44.2) [place] % (Auto) 9.4 H % (2.6-8.5) Eos % (Auto) 3.4 % (0-4.4) Baso % (Auto) 1.6 H % (0.2-1.2) Lymph # (Auto) 1.59 K/mm3 (0.9-3.2) [place] # (Auto) 0.4 K/mm3 (0.1-0.6) Eos # (Auto) 0.2 K/mm3 (0-0.3) Baso # (Auto) 0.1 K/mm3 (0.0-0.1) Abs Immat Gran (auto) 0.00 K/mm3 (0.00-0.031) Absolute Neuts (auto) 2.2 K/mm3 (1.3-6.7) Absolute Nucleated RBC 0.000 K/mm3 (0.0-0.012) Nucleated RBC % 0.0 % (0.0-0.2) Sodium 137 mmol/L (137-145) Potassium 3.6 mmol/L (3.4-5.0) Chloride 108 H mmol/L (98-107) Carbon Dioxide 19 L mmol/L (22-30) Anion Gap 10 mmol/L (4-12) BUN 4 L D mg/dL (7-17) Creatinine 0.58 L mg/dL (0.7-1.0) Estim Creat Clear Calc 97 ml/min Estimated GFR > 60 (59 - ) Glucose 95 mg/dL (65-110) Calcium 8.6 mg/dL (8.4-10.2) Total Bilirubin 0.9 mg/dL (0.2-1.3) AST 113 H U/L (14-36) ALT 343 H U/L (6-35) Alkaline Phosphatase 86 U/L (38-126) Total Protein 6.0 L g/dL (6.3-8.2) Albumin 3.4 L g/dL (3.5-5.1) Lipase 54 U/L (23-300) Patient hx anesthesia problems: none Family hx anesthesia problems: none Results Review: All pre-operative results and documents have been reviewed as part of the pre- operative evaluation. [facility] Past Medical History Medical History Upper abdominal pain Familial hypercholesterolemia Essential (primary) hypertension Surgical History Surgical History delivery delivered Previous section Family History Family History Mother Hypertension Mother Hypertension Other Cancer of pancreas Diabetes mellitus Social History Social History Smoking packs per day: 0 Smoking cigarettes per day: 0.0 Smoking status: Never smoker Alcohol intake: current Drinks per week: 4 Alcohol use details: occasional Substance use: never Do You Feel Safe in your Home?: Yes Lack of Transportation: No Lack of Food: Never True Current Housing: I Have Housing Concerned About Future Housing: No Difficulty Paying Gas/Electric Bills: No Difficulty Paying for Meds: No Currently Unemployed: No Education: Decline to Answer Difficulty w/ Childcare or Family Care: No Living arrangements: with family Occupation/Education: occupation 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 HTN, hyperlipidemia, although pt has been off her BP meds for a bit, home bps r eported 130s/80s. Informed Consent: The patient's anesthetic plan and its attendant risks and benefits were discussed with the patient/family/POA. Questions were solicited and answers provided to the satisfaction of the patient/family/POA.
[2024-05-11] MEDS: BUPIVACAINE/EPINEPHRINE 0.5% 30 ML VIAL INFILTRATE (13:25)
--- NOTE | 2024-05-11 13:28 | W.PM.PROC2 ---
Procedure Note - Detailed Date of Procedure 05/11/24 Pre-op Diagnosis Acute biliary pancreatitis Post-op Diagnosis Same Procedure Performed Laparoscopic cholecystectomy Surgeon Lis Barrios MD Anesthesia General Indications 53-year-old female presenting to the emergency department with acute biliary pancreatitis. Patient had normalization of the enzymes after few days in the hospital indicating spontaneous passage of biliary stones. Patient now set up for interval cholecystectomy. Findings moderate cholecystitis with cholelithiasis Description of Procedure The patient was taken to the operating room placed in the supine position. After adequate induction of general anesthesia, the patient was prepped and draped in normal sterile fashion. A time-out was then performed to verify the patient's identity as well as the procedure being performed. I then made a 5 mm incision in the infraumbilical region. Through this, a Veress needle was placed into the peritoneal cavity and CO2 gas was then insufflated. After adequate pneumoperitoneum was achieved, the Veress needle was removed and a 5 mm optiview trocar was placed through this incision under direct visualization. I then placed the laparoscope through this trocar site and under direct visualization placed a further 12 mm subxiphoid port as well as 2 additional 5 mm ports in the right upper abdomen. The gallbladder was then identified and was noted to be moderately inflamed, distended, and full of gallstones. I was able to place a grasper at the dome of the gallbladder and this was retracted anterior and cephalad up over the liver. A 2nd retractor was then placed at the infundibulum and retracted laterally, this allowed visualization of the triangle of Calot. I then was able to visualize the cystic duct in its entirety from its proximal insertion into the gallbladder, to its distal junction with the common hepatic/common bile duct junction. At this point, I carefully skeletonized the proximal cystic duct with the [place] dissector. I then clipped and transected the proximal cystic duct. Next I visualized the cystic artery. Again the artery was skeletonized, clipped, and transected. I then used the Bovie cautery to take down the peritoneal attachments of the gallbladder off the liver bed. Once the gallbladder specimen was completely detached, an endo-pouch was placed through the 12 mm port site. I then placed the gallbladder specimen into the Endo pouch and removed the endo-pouch from the 12 mm port site. The specimen will now be sent to pathology for further review. I then copiously irrigated the right upper quadrant. Hemostasis was noted in the liver bed, the clips were noted to be in good position on both the cystic duct stump and the cystic artery stump. No other pathology was noted in the right upper quadrant. I then moved the laparoscope to the subxiphoid port. No iatrogenic injury or other pathology was noted in the lower abdomen. I then closed the 12 mm trocar site under direct visualization using the Ortega cone and 0 Vicryl suture. At this point, the abdomen was desufflated and all ports removed. All port sites were then closed with 4.O Monocryl subcuticular sutures. Dermabond was placed on each incision. The patient tolerated the procedure well, was extubated in the operating room postoperative and will be transferred to the recovery room in stable condition Estimated Blood Loss 5 Drains No Packing No Pathology Yes Complications No immediate complications Condition Stable Disposition PACU [facility] Billing Surgery - Charge Forward: Surgery Billing
[2024-05-11] MEDS: fentaNYL CITRATE INJ (*CRX) 100 MCG/2 ML VIAL 25 MCG IV PUSH ×2 (13:55→14:02)
--- NOTE | 2024-05-11 15:12 | PC.NURSE ---
Returned from OR at 1400. Report received from Hilary MIKE.
[2024-05-11] MEDS: HYDROcodone/acetaminophen (*CRX) 5-325 MG TABLET 1 TAB PO (15:43)
--- NOTE | 2024-05-11 17:31 | P.DS_ITS ---
DS: Admitting Diagnosis Discharge Date 05/11/24 Admitting Diagnosis Epigastric pain and nausea. DS: Discharge Diagnosis Discharge Diagnosis (1) Acute cholecystitis: Code(s): K81.0 - Acute cholecystitis Status: Acute (2) Acute pancreatitis: Qualifiers: Acute pancreatitis complication: no infection or necrosis Pancreatitis type: biliary Qualified Code(s): K85.10 - Biliary acute pancreatitis without necrosis or infection Code(s): K85.90 - Acute pancreatitis without necrosis or infection, unspecified Status: Acute (3) Essential (primary) hypertension: Code(s): I10 - Essential (primary) hypertension Status: Acute DS: Summary Hospital Course Reason for hospitalization: 53yo female with dyslipidemia and hypertension here for epigastric pain and nausea. Please see H&P for details. Hospital Course: Patient is white blood cell count was mildly elevated on admission otherwise CBC unremarkable. White count normalized with treatment. AST and ALT were elevated to 675 and 571 respectfully before trending downward. Total bilirubin was 1.6 before normalizing. Lipase was 1363 but normalized 2 days later. UA was clear. Influenza, RSV and COVID PCR were negative (influenza A positive in Apr 2023, not this admission). CT of the abdomen and pelvis with IV contrast shows probable gallbladder wall thickening otherwise no acute findings. Abdominal ultrasound showed cholelithiasis and gallbladder wall thickening. MRCP showed numerous small gallstones in the dependent aspect of the otherwise normal appearing gallbladder. There is nerissa cholecystic fluid at the gallbladder fossa. There is likely a benign 1.7cm thin-walled cyst along the serosal surface of the proximal descending colon. The common bile duct measured 2-3 mm. No evidence to suggest choledocholithiasis. General surgery was consulted. Patient underwent laparoscopic cholecystectomy earlier today. She tolerated this well. She has been up ambulating to the bathroom. She has been eating and tolerating it without nausea or vomiting. She feels ready for discharge. She overall did well and was able to be discharged home on 05/11/2024. Status at Discharge Cognitive/behavioral status at discharge: stable Time Spent with Patient Time attestation: Total time spent providing and/or coordinating discharge services: 35 minutes Time spent: Greater than 30 minutes Exam Narrative: AF 112/81 69 18 96% ra Gen - NARD Chest - CTA bilaterally, nml RR CV - RRR S1/S2 Abd - soft, minimal tenderness, multiple small incisions are clean, dry and intact Ext - No pedal edema Psych - Nml mood and affect Skin - Warm and dry DS: Data Data Completed and Pending Pending studies at discharge: Pending at discharge 05/11/24 13:06 Surgical [PTH] Routine Labs on day of discharge: Labs from last 24 hours 05/11/24 06:43 WBC 4.5 RBC 4.03 L Hgb 12.6 Hct 38.1 MCV 94.5 MCH 31.3 MCHC 33.1 RDW 13.2 Plt Count 220 MPV 9.6 Immature Gran % (Auto) 0.0 Neut % (Auto) 50.0 Lymph % (Auto) 35.6 [place] % (Auto) 9.4 H Eos % (Auto) 3.4 Baso % (Auto) 1.6 H Lymph # (Auto) 1.59 [place] # (Auto) 0.4 Eos # (Auto) 0.2 Baso # (Auto) 0.1 Abs Immat Gran (auto) 0.00 Absolute Neuts (auto) 2.2 Absolute Nucleated RBC 0.000 Nucleated RBC % 0.0 Sodium 137 Potassium 3.6 Chloride 108 H Carbon Dioxide 19 L Anion Gap 10 BUN 4 L D Creatinine 0.58 L Estim Creat Clear Calc 97 Estimated GFR > 60 Glucose 95 Calcium 8.6 Total Bilirubin 0.9 AST 113 H ALT 343 H Alkaline Phosphatase 86 Total Protein 6.0 L Albumin 3.4 L Lipase 54 Discharge Plan Discharge Attending physician on discharge: Elton Phillips Consulting providers: Brian English Pei Chang Discharging Clinician: Elton Phillips Anticipated Discharge Date/Time: 05/11/24 17:43 Patient Disposition: Home, Self-Care Activity: may shower Diet: as tolerated Wound Care Instructions: incision open to air Discharge Instructions: DISCHARGE INSTRUCTION SHEET FOR HERNIA, GALLBLADDER AND APPENDIX SURGERIES DR. BARRIOS PATIENT TO TAKE HOME 1. May shower in 24 hours, no soaking in bath x 2weeks. 2. Call office for: * Wound increasingly painful or bleeding * Vomiting * Fever of greater than 101 degrees 3. If no bowel movement for three days, take 1 oz. (30 ml) Milk of Magnesia or MiraLax 17g 1 to 2 times daily. 4. No heavy lifting > 10-15 pounds x 6 weeks for hernia repairs and 2 weeks for laparoscopic cholecystectomy or appendectomy. 5. No driving for 3 days or while taking narcotic pain medications. 6. Ice to surgical site for 48 hours (30 min on, then 30 min off). 7. Up walking 10-30 minutes three times per day. 8. Resume previous home medications. 9. Follow-up 10-14 days in office for wound check or as previously scheduled. ([phone]) 10. Oral pain medications prescription to be sent to pharmacy. Take Tylenol 500mg every 6 hours and Ibuprofen 600mg every 6 hours for the first 2 days, then as needed. 11. NUTRITION: Start out by drinking fluids and increase your diet as tolerat ed. If you experience nausea, try dry toast, crackers, and 7-UP. If nausea or vomiting persists, contact your surgeon?s office. 12. Gallbladders-Low Fat Diet for 2 weeks (send care note of low fat diet) 13. Inguinal Hernias-wear scrotal support for 48 hours 14. Abdominal Hernias-if sent home with abdominal binder, wear for the first 2 weeks (may remove to shower or at night to sleep). Check blood pressure 1 to 2 times a day. Record and bring into your doctor for review. Call your doctor if your blood pressure is greater than 180/110. Follow-up with your primary care provider in 1-2 weeks. Please call for appointment. Please discuss with your doctor about your home medications. Thank you for using [facility] for your health care needs. Revised 03/2020 Patient Instructions: Antibiotic Form Patient Language: Estonian Stand Alone Forms: General Discharge Information Follow-up/Referrals: Lis Barrios MD [Physician] - 2 Weeks Discharge Medications: New hydrocodone-acetaminophen 5-325 mg tablet 1 tablet PO Q6H PRN (Reason: pain) Qty: 20 0RF Held rosuvastatin 20 mg tablet See Rx Instructions .ROUTE .COMPLEX Qty: 90 0RF Hold Instructions: Hold -please discuss resuming this with your doctor. Dose Instruction: TAKE ONE TABLET BY MOUTH DAILY Rx Instructions: TAKE ONE TABLET BY MOUTH DAILY valsartan-hydrochlorothiazide 160-12.5 mg tablet See Rx Instructions .ROUTE .COMPLEX Qty: 90 0RF Hold Instructions: Hold -please discuss resuming this with your doctor. Dose Instruction: TAKE ONE TABLET BY MOUTH DAILY Rx Instructions: TAKE ONE TABLET BY MOUTH DAILY Date of admission: 05/09/24 07:47 Primary Care Provider: Donavan Perera Admitting Provider: Theo Zuleta Attending physician on admission: Theo Zuleta Condition: Stable Hospitalist MIPS Heart Failure (Exclusion) Patient has history of Heart Transplant or Left Ventricular Assistive Device?: No IF YES, STOP HERE Heart Failure (Qualifier) Patient has current or prior documentation of LVEF less than or equal to 40%, or mod/servere depressed LVSF?: No IF NO, STOP HERE
== END 2024-05-11 17:58 | disposition home or self-care (01) | DRG 418 ==
LOC: ANHED 05-09 01:45 → ANH3MEDSUR 05-09 01:59
PROVIDERS: Emergency Medicine; Student in an Organized Health Care Education/Training Program; Surgery; Admitting Provider Internal Medicine; Emergency Provider Physician Assistant; PCP Family Medicine; Visit Provider Internal Medicine
PROC: 0FT44ZZ Resection of Gallbladder, Percutaneous Endoscopic Approach (ICD-10-PCS; CPT 47562; principal; 2024-05-11 12:30)
DX: K85.10 Biliary acute pancreatitis without necrosis or infection (principal); K80.00 Calculus of gallbladder with acute cholecystitis without obstruction; E78.5 Hyperlipidemia, unspecified; I10 Essential (primary) hypertension; Z20.822 Contact with and (suspected) exposure to COVID-19
CPT/HCPCS: 36415; 74177; 74183; 76376; 76705; 80053; 81001; 81025; 83690; 85025; 87637; 88304; 93005; 96361; 96365; 96368; 96374; 96375; 99285; A9270; A9577; G0378; J0696; J1100; J1644; J1836; J1885; J2003; J2250; J2270; J2405; J2470; J2543; J2704; J3010; J7030; J7042; J7120; Q9967

== ENCOUNTER 2024-05-19 14:35 | Outpatient (CLI) | payer OTHER, SELFPAY ==
[2024-05-19 15:47] LABS: Alanine Aminotransferase 94 U/L (14-59); Alkaline Phosphatase 97 U/L (46-116); Anion Gap 9 mmol/L (4-12); Aspartate Amino Transferase 15 U/L (15-37); Bilirubin,Total 0.3 mg/dL (0.00-1.00); Blood Urea Nitrogen 25 mg/dL (7-18); Calcium 9.5 mg/dL (8.5-10.1); Carbon Dioxide 27 mmol/L (21-32); Chloride 106 mmol/L (98-108); Cholesterol 256 mg/dL (0-200); Estimated Glomerular Filt Rate > 60; Glucose 80 mg/dL (70-99); HDL Direct 49 mg/dL (40-60); LDL Cholesterol Calculated 169 mg/dL (<130); Osmolality Calculated 297 mOsm/kg (285-295); Potassium 4.2 mmol/L (3.5-5.1); Sodium 142 mmol/L (136-145); Total Protein 7.2 g/dL (6.4-8.2); Triglycerides 191 mg/dL (0-150)
--- OUTSIDE RECORDS SUMMARY | 2024-05-19 15:56 | XMS_ITS | Clinical Summary ---
Author Organization [facility] Address [address] [place] [address] Care Team Providers Care Aboriginal Ceremonial Celebrant Name Role Phone Derick Heaton MD Primary Care Provider [phone] Allergies No known active allergies Medications No [...] KAJAL LORY DIGI Routine 01/24/2019 11:15 AM TUBE DISPATCHER Visit for screening mammogram from Last 3 Months or Most Recently Relevant to Health Maintenance Results * MG SCREENING W KAJAL LORY DIGI (01/24/2019 11:15 AM TUBE DISPATCHER) Anatomical Region Laterality Modality Breast Bilateral Mammography 01/24/2019 11:2 2 AM TUBE DISPATCHER Narrative 01/24/2019 11:23 AM TUBE DISPATCHER IMAGING STUDIES: MG SCREENING W KAJAL LORY [...] Relevant to Health Maintenance Insurance Care Teams Aboriginal Ceremonial Celebrant Relationship Specialty Start Date End Date Derick Heaton MD PCP - General OBGYN 01/20/19
--- OUTSIDE RECORDS SUMMARY | 2024-05-19 15:56 | XMS_ITS | Clinical Summary ---
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
--- OUTSIDE RECORDS SUMMARY | 2024-05-19 15:56 | XMS_ITS | Referral Summary ---
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
== END 2024-05-19 14:36 | disposition home or self-care (01) ==
LOC: CHSLAB 14:36
PROVIDERS: PCP Nurse Practitioner Family; Visit Provider Nurse Practitioner Family
DX: Z13.6 Encounter for screening for cardiovascular disorders (principal); E78.01 Familial hypercholesterolemia; R79.89 Other specified abnormal findings of blood chemistry
CPT/HCPCS: 36415; 80053; 80061

== ENCOUNTER 2024-08-26 08:22 | Outpatient (CLI) | payer OTHER, SELFPAY ==
--- NOTE | ~2024-08-26 | MM_ITS ---
EXAMINATION: MM screening mikel BI w dejan HISTORY: Screening TECHNIQUE: Craniocaudal and mediolateral oblique 3-D tomosynthesis images were obtained and synthetic 2-D images were generated. CAD analysis was submitted and interpreted. COMPARISON: Comparison to multiple prior studies sequentially, with oldest reviewed study dated 06/25. BREAST PARENCHYMAL COMPOSITION: Dense: The breasts are heterogeneously dense, which may obscure small masses FINDINGS: There is no evidence of suspicious mass, calcification, or architectural distortion to sugg est malignancy in either breast. There has been no suspicious interval change. IMPRESSION: 1. No mammographic evidence of malignancy. 2. Recommend routine screening mammography in one year. BI-RADS Category 1: Negative Reviewed, dictated and finalized at location []
--- OUTSIDE RECORDS SUMMARY | 2024-08-26 08:25 | XMS_ITS | Referral Summary ---
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
--- OUTSIDE RECORDS SUMMARY | 2024-08-26 08:25 | XMS_ITS | Clinical Summary ---
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 Sexual Orientation Not on file Obstetrics History [...] season) 2023 02/20/2021, 04/28/2020, 03/31/2020 Influenza Vaccine (Season Ended) 2024 Pneumococcal vaccine <65 Aged Out No longer eligible based on patient's age to complete this topic Insurance [facility] Address: [facility] [address] [place] [address] [facility]/PPO Address: [facility] [id number] [place], [place] [id number] Care Teams Veterans Services Specialist Relationship Specialty Start Date End Date No, Physician PCP - General 05/28/22
--- OUTSIDE RECORDS SUMMARY | 2024-08-26 08:25 | XMS_ITS | Data Portability ---
Author Organization [facility], Main Office Address [address] [place] [address] Care Team Providers Care Social Services Analyst Name Role Phone OTONIEL CABRERA Primary Care Provider OTONIEL CABRERA Referring Provider [phone] Assessment Encounter Date Assessment Date Assessment LastModified [...] groin I believe she should see her area field person for follow-up of that cyst and she has an appointment to see her area field person July 07 and will call of she [...] well but I would defer to the area field person about consideration. I recommended to her trying [...] more than half this time spent in [id number] care. [email or web address] Not available 05/29/2022 09:14:37 Plan [...] contr ast No observ ation record ed. [id number] Not Available 05/15/2022 01:48:56 04/15/19 23 04/08/2022 XR, hip + pelvi s, unila teral , 2 or 3 view No observ ation record ed. [id number] Not Available 05/15/2022 01:48:56 05/29/1904/12/2022 MRI, hip, w/o contr ast No observ ation record ed. [email or web address] Not Available 2022 17:59:42 Result Notes None recorded. Problems Name Problem SNOMED Code Status Onset Date Resolution Date Notes Provider Name and Address Organization Details Recorded Time Pain of left hip joint 108578309981138 Active 2022 Not Available [facility] 01:47:54 Problem Notes None recorded. Procedures Surgical History Date Name Laterality Status Provider Name and Address Organization Details Recorded Time section completed Not Available [facility] 05/15/2022 01:47:28 Imaging Results None recorded. Procedure Notes None recorded. Medical Equipment None [...] Updated DateTime 05/09/2022 29.7 kg/m2 167.64 cm 98231 g Not Available [facility] 05/15/2022 01:47:37 Date Recorded Body height Provider Name an d Address Organization Details Last Updated DateTime 05/28/2022 167.64 cm MARÍA ELENA [place] [facility] 05/28/2022 10:19:27 Social History None recorded. Functional Status Question Answer Note LastModified by Organizat ion Details LastModified Time What is your level of alcohol consumption? None [id number] Information not available 05/15/2022 Mental Status None recorded. Family History Relationship Description Onset Age of this Age Resolved Age Notes LastModified by Organization Details LastModified Time Father Family history of stroke [id number] Not available 05/15/2022 01:47:29 Father Diabetes mellitus [id number] Not available 05/15/2022 01:47:29 Mother Hypertensive disorder [id number] Not available 05/15/2022 01:47:29 Mother Diabetes mellitus [id number] Not available 05/15/2022 01:47:29 Medical History No medical history recorded. Gynecological HistoryNo gynecological history recorded. Obstetrics History GPAL:G 0 P 0 0 0 0 Past Encounters Encounter ID Performer Location Encounter Start Date Encounter Closed Date Diagnosis/Indication Diagnosis SNOMED-CT Code Diagnosis ICD10 Code Diagnosis Note [id number] [facility] [address] [place] [address] 05/09/2022 00:00:00 05/10/2022 10:32:22 [id number] [facility] [place] [facility] [address] [place] [address] 05/28/2022 10:14:43 05/29/2022 09:22:33 Pain of left hip joint 5800792094 27328 M25.552 Health Concerns Section Related Observation LastModified by Organization Detai ls LastModified Time None Recorded Concern Status LastModified by Organization Details LastModified Time None Recorded Advance Directives Directive None Recorded Payers Insurance Date Sequence Insurance Name Policy Number Policy Conte Covered Member ID Conte Member ID Guarantor Name 05/25/2022 1 [facility] ([facility] [id number] Sherri Burch [id number] Sherri Burch OBGyn Episode No OBEpisode recorded.
== END 2024-08-26 08:23 | disposition home or self-care (01) ==
PROVIDERS: PCP Nurse Practitioner Family; Visit Provider Nurse Practitioner Family
DX: Z12.31 Encounter for screening mammogram for malignant neoplasm of breast (principal)
CPT/HCPCS: 77063; 77067